=== PATIENT | female | born 1960 | race Caucasian/White ===

== ENCOUNTER → 2023-11-01 17:05 | Outpatient (REF) | payer OTHER, SELFPAY | LOC: RAD 17:05 | PROVIDERS: ATTENDING PHYSICIAN Nurse Practitioner Adult Health | DX: R60.0 Localized edema (principal); M79.661 Pain in right lower leg | CPT/HCPCS: 93971 ==

== ENCOUNTER → 2024-03-27 13:23 | Outpatient (REF) | payer OTHER, SELFPAY | LOC: RCS 13:23 | PROVIDERS: ATTENDING PHYSICIAN Internal Medicine Rheumatology; FAMILY PHYSICIAN Nurse Practitioner Adult Health | DX: R06.09 Other forms of dyspnea (principal); G89.29 Other chronic pain; M05.9 Rheumatoid arthritis with rheumatoid factor, unspecified; M17.11 Unilateral primary osteoarthritis, right knee; M25.571 Pain in right ankle and joints of right foot; M25.572 Pain in left ankle and joints of left foot; M79.671 Pain in right foot; M79.672 Pain in left foot | CPT/HCPCS: 93017; 71046; 73610; 73630; 93306 ==

== ENCOUNTER → 2024-04-17 14:14 | Outpatient (REF) | payer OTHER, SELFPAY | LOC: HWRAD 14:14 | PROVIDERS: ATTENDING PHYSICIAN Nurse Practitioner Adult Health | DX: R93.89 Abnormal findings on diagnostic imaging of other specified body structures (principal) | CPT/HCPCS: 71250 ==

== ENCOUNTER → 2024-07-07 11:40 | Outpatient (REF) | payer OTHER, SELFPAY | LOC: HWWDC 11:40 | PROVIDERS: ATTENDING PHYSICIAN Obstetrics & Gynecology Gynecology; FAMILY PHYSICIAN Nurse Practitioner Adult Health | DX: Z12.31 Encounter for screening mammogram for malignant neoplasm of breast (principal) | CPT/HCPCS: 77063; 77067 ==

== ENCOUNTER 2024-11-10 06:26 | Day surgery (SDC) | payer OTHER, SELFPAY | END 2024-11-10 15:05 | disposition home or self-care (01) | LOC: GI 06:26 | PROVIDERS: ATTENDING PHYSICIAN Internal Medicine; FAMILY PHYSICIAN Nurse Practitioner Adult Health | DX: Z12.11 Encounter for screening for malignant neoplasm of colon (principal); D12.0 Benign neoplasm of cecum; D12.2 Benign neoplasm of ascending colon; K57.30 Diverticulosis of large intestine without perforation or abscess without bleeding; K64.9 Unspecified hemorrhoids | CPT/HCPCS: 45380; 88305 ==

== ENCOUNTER 2025-02-11 20:20 | Inpatient (IN) | payer OTHER, SELFPAY ==
[2025-02-11 17:36] VITALS: BP 109/72
[2025-02-11 17:54] LABS: Hematocrit 39.8 % (37.0-47.0); Hemoglobin 13.1 g/dL (12.0-16.0); Mean Corp Hgb Conc. 32.9 g/dL (33.0-37.0); Mean Corpuscular Volume 89.0 fL (81.0-99.0); Nucleated Red Blood Cells % 0 %; Platelet Count 262 10^3/uL (130-400); Red Cell Dist. Width 14.0 % (11.5-14.5)
[2025-02-11 18:11] LABS: ALT (SGPT) 36 U/L (0-35); AST (SGOT) 52 U/L (14-36); Albumin 3.9 g/dl (3.5-5.0); Alkaline Phosphatase 46 U/L (38-126); Blood Urea Nitrogen 36 mg/dl (7-17); Calcium 10.1 mg/dl (8.4-10.2); Carbon Dioxide 21 mmol/L (22-30); Chloride 109 mmol/L (98-107); Glucose 198 mg/dl (70-99); Potassium 4.3 mmol/L (3.5-5.1); Sodium 137 mmol/L (135-145); Total Protein 6.9 g/dl (6.3-8.2); eGFR 46.21
--- NOTE | 2025-02-11 19:08 | ED.GENMED ---
History of Present Illness
General
Chief Complaint: Skin Problem
Source: patient
Exam Limitations: none
Time Seen by Provider: 02/11/25 18:45
History of Present Illness
History of Present Illness:
64yo right hand dominant female with a history of hypertension, hyperlipidemia, hypothyroidism presenting for evaluation of a cat scratch to her left forearm. Patient was scratched by her indoor cat 1 week ago. She did not have any issues until
yesterday afternoon when she started to notice redness, warmth, and pain to the left forearm. She had chills and a low-grade temperature of 99.6 last night. She went to urgent care today for evaluation and she was sent to the ED due to concern for
red streaking up the arm. Patient reports being up-to-date on tetanus vaccine and cat is indoor only and up-to-date on rabies vaccination.
Phy Exam
General Physical Exam
General Presentation: well appearing and no apparent distress
General Skin: warm and dry
General Habitus: normal
General Mental: alert
ENT Exam
ENT Exam: normocephalic
Pulmonary Exam
Pulmonary Exam: no respiratory distress
Neurological Exam
Neurological Exam: alert
[place] Coma Scale
Eye Opening: Spontaneous
Verbal Response: Oriented
Motor Response: Obeys Commands
GCS Total Score: 15
Skin Exam
Skin Exam: warm/dry and other (L forearm: Scab noted to dorsum of forearm with surrounding erythema and warmth and red streaking proximally consistent with lymphangitis. No fluctuance, drainage, or crepitus.)
Psychiatric Exam
Psychiatric Exam: normal mood/affect
Course
Orders/Labs/Results
Orders:
Orders
02/11/25 Breakfast
Regular
At Your Request: Full Participation
02/11/25 17:46
Complete Blood Count/With Diff Urgent
Comprehensive Metabolic Panel Urgent
Glycohemoglobin (HgbA1c) Urgent
Lactic Acid Urgent
Blood Culture Urgent
SUE Source: Blood/Venous
Specimen Description:
02/11/25 19:10
0.9% Sodium Chloride 1000 ml [Nss] 1,000 ml IV BOLUS
Azithromycin 500 mg/250 ml [Zithromax Infusion] 500 mg in 250 ml IV NOW
CeFAZolin 2 GRAM [Ancef] 2 grams in 10 ml IV NOW
02/11/25 19:37
Blood Culture Urgent
SUE Source: Blood/Venous
Specimen Description:
02/11/25 19:50
Admit/Transfer Patient As Directed
Co-Sign Provider:
Level of Care: Inpatient admission
Assign to:: Medical/Surgical
Physician / Group: Tee
Diagnosis: LUE Cellulitis
Reason for Hospitalization: LUE Cellulitis
Expected length of stay greater than two midnights?: Yes
ELOS- Estimated Length of Stay in days: 2
I certify the patient meets the requirements for IP care: Yes
PRN Pain Medication Management As Directed
May give lesser potent ordered pain med per pt: Yes
preference::
Protocol:: Medication orders for pain may be administered in a
manner that supports deferring to patient preference
when the pt is:
- Requesting an ordered lesser potent pain medication.
Least to most potent pain medications are defined
as: acetaminophen < NSAID < tramadol < opioids
(morphine, oxycodone, hydromorphone).
- Requesting a lesser dose of the same medication IF
ORDERED.
- Requesting a less intrusive route of administration
if both routes are prescribed by the provider (PO <
IV).
02/11/25 19:51
Code Status As Directed
Resuscitation Status: Full Code
02/11/25 21:45
Acetaminophen [Tylenol] 650 mg PO Q4HPRN PRN
02/11/25 21:45
Activity As Directed
Activity Level: Ambulate
I/O [Intake/ Output] As Directed
Frequency: Per unit guidelines
Vital Signs As Directed
Frequency: Per unit guidelines
Oxygen Therapy [O2 Therapy] [RESP] Routine
Titrate/Wean O2 to maintain O2 sat greater than (%): 94
DX Deep Vein Thrombosis Video Routine
02/11/25 22:00
Fenofibrate 145 [Tricor] 145 mg PO HS
Gabapentin [Neurontin] 300 mg PO BID
02/12/25 04:00
CeFAZolin 2 GRAM [Ancef] 2 grams in 10 ml IV Q8H
02/12/25 06:00
Basic Metabolic Panel IN AM
Complete Blood Count/No Diff IN AM
Levothyroxine [Synthroid] 125 mcg PO DAILY @ 0600
02/12/25 08:00
Azithromycin [Zithromax] 250 mg PO DAILY
Celecoxib [Celebrex] 200 mg PO DAILY
Cholecalciferol (Vitamin D3) [VITAMIN D3 (cholecalciferol)] 75 mcg PO DAILY
Dapagliflozin [Farxiga] 10 mg PO DAILY
Enoxaparin Sodium [Lovenox] 40 mg SC Q12
Furosemide [Lasix] 20 mg PO Q48H
Multivitamin [Theragran] 1 tablet PO DAILY
Abnormal Lab Results
02/11/25
17:46
WBC 20.1 H 10^3/uL
(4.8-10.8)
MCHC 32.9 L g/dL
(33.0-37.0)
Abs Immat Gran (auto) 0.1 H 10^3/uL
(0-0.05)
Absolute Neuts (auto) 17.4 H 10^3/uL
(1.4-6.5)
Absolute Monos (auto) 0.7 H 10^3/uL
(0.1-0.6)
Immature Gran % 0.6 H %
(0-0.5)
Neutrophils % 86.8 H %
(42.2-75.2)
Lymphocytes % 8.6 L %
(20.5-51.1)
Chloride 109 H mmol/L
(98-107)
Carbon Dioxide 21 L mmol/L
(22-30)
BUN 36 H mg/dl
(7-17)
Creatinine 1.3 H mg/dL
(0.6-1.0)
Glucose 198 H mg/dl
(70-99)
AST 52 H U/L
(14-36)
ALT 36 H U/L
(0-35)
02/11/25 17:46
02/11/25 17:46
Vital Signs
Initial and Last Documented VS:
Initial Vital Signs
Temp Pulse Resp BP Pulse Ox
98.1 F 95 20 109/72 96
02/11/25 17:36 02/11/25 17:36 02/11/25 17:36 02/11/25 17:36 02/11/25 17:36
Last Documented Vital Signs
Temp Pulse Resp BP Pulse Ox
98.1 F 92 18 156/77 98
02/11/25 21:25 02/11/25 21:25 02/11/25 21:25 02/11/25 21:25 02/11/25 21:25
MDM/Problems Addressed
Differential Diagnosis Includes:
64yoF here with L forearm redness and chills x 24 hours. Scratched by cat 1 week ago. Sent in by urgent care. VSS. There is evidence of cellulitis with lymphangitis on exam. No signs of abscess or NSTI.
Labs obtained in triage and white count is significantly elevated at 20.1. Lactate WNL. Blood culture sent, second set added. IV Ancef and azithromycin ordered to cover for cat scratch disease. She was admitted for further management.
*Pulse Oximetry
SaO2: 96
Oxygen Mode of Delivery: Room air
Patient hypoxic: no (96%)
*Critical Care Note
Total Time (30-74mins, 75-104mins- exclusive of procedures): Not Applicable
ED Attending Note
-
Portions of this chart may have been created with voice recognition software.� Occasional wrong word or��sound alike� substitutions may have occurred due to the inherent limitations of voice recognition software.
Discharge Plan
Departure
Patient Disposition: Admit
Date of Disposition: 02/11/25
Time of Disposition: 19:22
Presentation/result/management discussed w/ accepting MD/DO: Hospitalist
Discharge Problem:
Cat scratch of left forearm with infection
Interventions
Interventions:
*Risk Screen - Suicide Last Done: 02/11/25 19:49
*General Assessment Last Done: 02/11/25 17:36
*Neglect/Abuse Screening Last Done: 02/11/25 19:49
*ED- Fall Risk Assessment Last Done: 02/11/25 19:49
*ED COVID-19 Vaccine History Last Done: 02/11/25 19:49
*Nursing Disposition Last Done: 02/11/25 21:01
ED-Skin Assessment Last Done: 02/11/25 19:49
Discharge Date and Time
Discharge Date/Time: 02/11/25 21:01
[2025-02-11 19:16] VITALS: BP 98/54
[2025-02-11 19:18] VITALS: BP 118/59
[2025-02-11] MEDS: NSS 1000 IV (19:20)
[2025-02-11] MEDS: ANCEF 10 IV (19:26)
[2025-02-11] MEDS: ZITHROMAX INFUSION 250 IV (19:27)
[2025-02-11 19:48] VITALS: BMI 45.6
--- NOTE | 2025-02-11 19:55 | HPS.HSE ---
Family Physician
-
Family Physician: CHASE Tomlinson
Chief Complaint
-
L arm pain / redness
History of Present Illness
Patient is a 64y F with PMH significant for RA on Simponi, hypertension and hypothyroidism who presents to ED complaining of LUE pain and redness. Patient states that her indoor cat scratched her about one week ago on the L forearm just proximal
to the wrist. She had no issues at all for the past week. She states that she may have scratched the scab yesterday. She noted some bleeding as her dog was licking her arm - which brought the newly open scratch / wound to her attention.
Overnight last night she noted shaking chills, sweats and fever. Today she appreciated pain and redness in the L arm which worsened throughout the day. She was seen at Urgent Care and referred to the ED for further evaluation.
Patient states that her most recent dose of Simponi was end of January.
Medical History
Past Medical History
Past Medical History: Reports Other
Additional Past Medical History:
Rheumatoid Arthritis
Hypothyroidism
Hypertension
Obesity
Chronic HFpEF
Past Surgical History: Reports Other
Additional Past Surgical History:
Bladder Sling
L TKA
Social History
Tobacco: Non-smoker
Alcohol: None
Drug: None
Family History
Family History: Not pertinent
Allergies / Home Medications
Allergies reflects when Allergies were last updated in [facility].
Home Medications with original date entered in [facility]
Allergy/Medication List:
Allergies
Allergy/AdvReac Type Severity Reaction Status Date / Time
Penicillins Allergy Swelling Verified 02/11/25 17:36
acetaminophen (From Percocet) AdvReac Pharmacy Verified 02/11/25 17:36
to Review
meperidine (From Demerol) AdvReac Nausea / Verified 02/11/25 17:36
Vomiting
oxycodone (From Percocet) AdvReac dizziness Verified 02/11/25 17:36
Home Medications
Vitamin D3: 3,000 units PO DAILY 06/24/20
fenofibrate 160 mg tablet 160 mg PO HS 06/24/20
levothyroxine 125 mcg tablet 125 mcg PO DAILY 06/24/20
celecoxib 200 mg capsule 200 mg PO DAILY ##0 07/15/20
dapagliflozin propanediol 10 mg tablet (Farxiga) 10 mg PO DAILY 02/11/25
furosemide 20 mg tablet 20 mg PO Q OTHER DAY 02/11/25
gabapentin 300 mg capsule 300 mg PO BID 02/11/25
multivitamin 1 tab PO DAILY 02/11/25
Review of Systems
-
History Source: Patient
A 12 point ROS was completed and negative except as noted: Yes
Constitutional: Reports Fever, Fatigue and Chills
EENT: Denies Sore Throat
Respiratory: Denies Cough or Trouble Breathing
Cardiac: Denies Chest Pain or Palpitations
Abdomen/GI: Denies Abdominal Pain, Nausea, Vomiting or Diarrhea
: Denies Dysuria or Flank Pain
Musculoskeletal: Reports Muscle Pain; Denies Joint Pain
Skin: Reports Other (Redness / pain / scratch L forearm.)
Hematologic/Lymphatic: Reports Other (No appreciated lymphadenopathy)
Physical Exam
Vital Signs
Vital Signs
Temp Pulse Resp BP Pulse Ox
98.1 F 82 22 118/59 98
02/11/25 17:36 02/11/25 19:45 02/11/25 19:45 02/11/25 19:18 02/11/25 19:30
Physical Exam
General: Other (64y F in no acute distress.)
HEENT: Moist mucous membranes and PERRLA
Respiratory: Clear; No Wheezes, Rales or Rhonchi
Cardiac: S1/S2 and Regular Rhythm; No Murmur
GI: Soft, Non Tender, Non Distended and Normal Bowel Sounds
Skin: Other (Scratch on dorsal aspect of the L forearm just proximal to the wrist. No bleeding / discharge. Surrounding erythema and increaed warmth including lymphangitis extending past the elbow.)
Neuro: AO x 3
Hematologic/Lymphatic: Other (No axillary or other appreciated adenopathy.)
Laboratory Results
-
02/11/25 17:46
02/11/25 17:46
Laboratory Results
Lactic Acid 1.6 mmol/L (0.7-2.0) 02/11/25 17:46
Total Bilirubin 1.0 mg/dl (0.2-1.3) 02/11/25 17:46
AST 52 U/L (14-36) H 02/11/25 17:46
ALT 36 U/L (0-35) H 02/11/25 17:46
Alkaline Phosphatase 46 U/L (38-126) 02/11/25 17:46
Impression/Plan
-
A/P: Patient is a 64y F with PMH significant for hypertension, hypothyroidism and RA on Simponi who presents to ED complaining of LUE pain and redness.
LUE Cellulitis with Lymphangitis
Immunocompromised Host
- Admit for further evaluation and treatment.
- Given timing, exam, etc - suspect cellulitis secondary to skin break / wound. Doubt CSD.
- Continue Ancef and follow for improvement in lymphangitis / pain / etc.
- Follow temperature curve and monitor for new / worsening symptoms.
- Complete azithromycin course (5 days total) and monitor for development of any adenopathy, etc.
- Cat is an indoor only animal and up to date with vaccinations.
- Dog (who licked the wound prior to onset of redness) also UTD with vaccinations.
RA
- Stable. No acute joint pains / etc.
- Last Simponi dose was end of January.
- Next due end of March.
Benign Hypertension
Chronic HFpEF
- Stable. Continue Farxiga and Lasix.
- Follow I/Os, daily weights, etc.
Suspected CKD III
- Stable. No recent prior values.
- Follow SCr over the next 48-72 hours to determine true baseline.
Hypothyroidism
- Continue current T4 replacement.
Obesity due to excess calories
- Affects all aspects of care.
- Encourage healthy diet and increased activity with goal of weight loss.
- Check A1C given hyperglycemia on initial labs.
DVT Prophylaxis: Lovenox
Code Status: Full
[2025-02-11 20:00] VITALS: BP 99/66
[2025-02-11 21:25] VITALS: BP 156/77; BMI 44.6
--- NOTE | 2025-02-11 21:30 | PTCARENOTE ---
Rec'd on 4W. Able to ambulate from stretcher to room w/o difficulty. Lt forearm red & warm to touch. Scabbed scratch noted; no drainage.
[2025-02-11] MEDS: TYLENOL 650 MG PO (21:59)
[2025-02-11] MEDS: NEURONTIN 300 MG PO (21:59)
[2025-02-11] MEDS: TRICOR 145 MG PO (22:40)
[2025-02-12 02:30] VITALS: BP 107/64
[2025-02-12] MEDS: ULTRAM 50 MG PO (03:35)
[2025-02-12] MEDS: ANCEF 10 IV ×3 (03:37→20:57)
[2025-02-12] MEDS: FLUSH (NSS) 2 FLUSH IV (03:38)
[2025-02-12 05:39] VITALS: BMI 44.0
--- NOTE | 2025-02-12 06:00 | PTCARENOTE ---
Redness Lt forearm remains as on adm to floor - no further extension.
[2025-02-12] MEDS: SYNTHROID 125 MCG PO (06:43)
[2025-02-12 07:30] VITALS: BP 104/64
[2025-02-12] MEDS: CELEBREX 200 MG PO (08:12)
[2025-02-12] MEDS: ZITHROMAX 250 MG PO (08:12)
[2025-02-12] MEDS: FARXIGA 10 MG PO (08:12)
[2025-02-12] MEDS: VITAMIN D3 (cholecalciferol) 75 MCG PO (08:13)
[2025-02-12] MEDS: NEURONTIN 300 MG PO ×2 (08:13→20:58)
[2025-02-12] MEDS: THERAGRAN 1 TABLET PO (08:14)
[2025-02-12] MEDS: LOVENOX 40 MG SC ×2 (08:15→20:58)
[2025-02-12 09:25] LABS: Hematocrit 40.9 % (37.0-47.0); Hemoglobin 13.4 g/dL (12.0-16.0); Mean Corp Hgb Conc. 32.8 g/dL (33.0-37.0); Mean Corpuscular Volume 90.5 fL (81.0-99.0); Platelet Count 267 10^3/uL (130-400); Red Cell Dist. Width 14.0 % (11.5-14.5)
[2025-02-12 10:23] LABS: Blood Urea Nitrogen 26 mg/dl (7-17); Calcium 10.0 mg/dl (8.4-10.2); Carbon Dioxide 19 mmol/L (22-30); Chloride 109 mmol/L (98-107); Estimated Creatinine Clearance 68 ml/min; Glucose 115 mg/dl (70-99); Potassium 4.1 mmol/L (3.5-5.1); Sodium 139 mmol/L (135-145); eGFR 56.46
[2025-02-12 11:00] LABS: Glycohemoglobin (HgbA1c) 6.0 % (4.0-5.6)
--- NOTE | 2025-02-12 12:09 | CM ---
Met with pt at bedside. IA completed.Lives with son in 2 story home with 3 step at entrance to home. BR on 1st floor.Has walker and cane at home; neither are in use. Has grab bars in the BR. History of HH post knee surgery.
PCP: Ismael Alves
Rx: 30 day fills [facility] in [place]
Rx: 90 day fill with [employer] order company. Name unknown
[2025-02-12] MEDS: TYLENOL 650 MG PO (12:51)
--- NOTE | 2025-02-12 13:31 | W.PN.HOSP.TC ---
Today's Communication/Plan
-
CW Ancef
Follow WBC and Cr
Assessment / Plan
Assessment / Plan
A/P: Patient is a 64y F with PMH significant for hypertension, hypothyroidism and RA on Simponi who presents to ED complaining of LUE pain and redness.
LUE Cellulitis with Lymphangitis
Immunocompromised Host
- Given timing, exam, etc - suspect cellulitis secondary to skin break / wound. Doubt CSD.
- Continue Ancef ;WBC improvement noted but patient with no subjective improvement in pain
- Follow temperature curve and monitor for new / worsening symptoms.
- Complete azithromycin course (5 days total) and monitor for development of any adenopathy, etc.
- Cat is an indoor only animal and up to date with vaccinations.
- Dog (who licked the wound prior to onset of redness) also UTD with vaccinations.
RA
- Stable. No acute joint pains / etc.
- Last Simponi dose was end of January.
- Next due end of March.
Benign Hypertension
Chronic HFpEF
- Stable. Continue Farxiga and Lasix.
- Follow I/Os, daily weights, etc.
Suspected CKD III
- Stable. No recent prior values.
- Follow SCr over the next 48-72 hours to determine true baseline.
Hypothyroidism
- Continue current T4 replacement.
Obesity due to excess calories
- Affects all aspects of care.
- Encourage healthy diet and increased activity with goal of weight loss.
- Check A1C given hyperglycemia on initial labs.
DVT Prophylaxis: Lovenox
Code Status: Full
Anticipated Discharge: 24 - 48 hours
Subjective/Interval History
-
Date of Service: February 12, 2025
The left arm still looks the same and feels the same as yesterday. Not much improvement.
No fevers this morning.
No nausea vomiting.
No diarrhea.
Denies any new symptoms.
Patient has chronic mild abnormal LFTs apparently and the physicians are keeping an eye on it.
Objective Data
-
Labs:
Laboratory Results
02/12/25
08:46
WBC 18.6 H
Hgb 13.4
Hct 40.9
Plt Count 267
Sodium 139
Potassium 4.1
Chloride 109 H
Carbon Dioxide 19 L
BUN 26 H
Creatinine 1.1 H
Glucose 115 H
Calcium 10.0
Vital Signs:
Vital Signs
Temp Pulse Resp BP Pulse Ox
98.3 F 82 18 104/64 94
02/12/25 07:30 02/12/25 07:30 02/12/25 07:30 02/12/25 07:30 02/12/25 07:30
I&O
02/11/25 02/12/25 02/13/25
06:59 06:59 06:59
Intake Total 220 / 220
Balance 220 / 220
Physical Exam
-
General: Comfortable
Respiratory: Non Labored Respirations; Negative Accessory Resp Muscle Use
Cardiac: Regular Rhythm and S1/S2
GI: Soft
Musculoskeletal: Edema, Left Upper Extrem (swelling of the dorsal forearm and clear border to the cellulitis ;no axillary LN )
Neuro: AO x 3
Psych: Calm
Data Reviewed
-
Labs: Labs Reviewed by me
[2025-02-12 15:36] VITALS: BP 124/64
[2025-02-12] MEDS: TRICOR 145 MG PO (20:58)
[2025-02-12 23:00] VITALS: BP 105/73
[2025-02-13] MEDS: ANCEF 10 IV ×2 (03:16→13:24)
[2025-02-13] MEDS: SYNTHROID 125 MCG PO (05:33)
[2025-02-13 07:30] VITALS: BP 110/69
[2025-02-13 08:38] LABS: Hematocrit 38.8 % (37.0-47.0); Hemoglobin 12.4 g/dL (12.0-16.0); Mean Corp Hgb Conc. 32.0 g/dL (33.0-37.0); Mean Corpuscular Volume 91.9 fL (81.0-99.0); Platelet Count 271 10^3/uL (130-400); Red Cell Dist. Width 14.1 % (11.5-14.5)
[2025-02-13] MEDS: LOVENOX 40 MG SC (09:12)
[2025-02-13] MEDS: NEURONTIN 300 MG PO (09:13)
[2025-02-13] MEDS: CELEBREX 200 MG PO (09:13)
[2025-02-13] MEDS: FARXIGA 10 MG PO (09:13)
[2025-02-13] MEDS: VITAMIN D3 (cholecalciferol) 75 MCG PO (09:13)
[2025-02-13] MEDS: LASIX 20 MG PO (09:14)
[2025-02-13] MEDS: THERAGRAN 1 TABLET PO (09:14)
[2025-02-13 09:17] LABS: Blood Urea Nitrogen 24 mg/dl (7-17); Calcium 9.7 mg/dl (8.4-10.2); Carbon Dioxide 21 mmol/L (22-30); Chloride 110 mmol/L (98-107); Estimated Creatinine Clearance 83 ml/min; Glucose 111 mg/dl (70-99); Potassium 4.4 mmol/L (3.5-5.1); Sodium 139 mmol/L (135-145); eGFR > 60.00
[2025-02-13] MEDS: ZITHROMAX 250 MG PO (09:17)
[2025-02-13] MEDS: TYLENOL 650 MG PO ×2 (09:21→15:49)
--- NOTE | 2025-02-13 11:58 | CM ---
Addendum entered by Kylah Shanks 02/13/25 14:25:
Per physician note; pt to be discharged home later today
Original Note:
Reviewed Chart. Met with pt bedside. Possible d/c today. Pt was told the IV ABXs will be changed to oral at discharge
Plan: home no needs
--- NOTE | 2025-02-13 13:18 | W.PN.HOSP.TC ---
Addendum entered and electronically signed by Gabe Garcia MD 02/14/25 13:11:
sepsis-poa
Original Note:
Today's Communication/Plan
-
dc home
po abx
Assessment / Plan
Assessment / Plan
A/P: Patient is a 64y F with PMH significant for hypertension, hypothyroidism and RA on Simponi who presents to ED complaining of LUE pain and redness.
LUE Cellulitis with Lymphangitis
Immunocompromised Host
- Given timing, exam, etc - suspect cellulitis secondary to skin break / wound. Doubt CSD.
- Continue Ancef ; leukocytosis resolved. Per patient significant improvement in erythema and swelling since admission. It was discussed with patient to return to ER if there is an increase in erythema, swelling and or with new onset of pain in
LUE.
- Follow temperature curve and monitor for new / worsening symptoms.
- Complete azithromycin course (5 days total) and monitor for development of any adenopathy, etc.
- Cat is an indoor only animal and up to date with vaccinations.
- Dog (who licked the wound prior to onset of redness) also UTD with vaccinations.
RA
- Stable. No acute joint pains / etc.
- Last Simponi dose was end of January.
- Next due end of March.
Benign Hypertension
Chronic HFpEF
- Stable. Continue Farxiga and Lasix.
- Follow I/Os, daily weights, etc.
Suspected CKD III
- Stable. No recent prior values.
- Follow SCr over the next 48-72 hours to determine true baseline.
Hypothyroidism
- Continue current T4 replacement.
Morbid Obesity due to excess calories
- Affects all aspects of care.
DVT Prophylaxis: Lovenox
Code Status: Full
Dispo Home later today.
More than 30 minutes spent in discharge including
Final examination of the patient
Summarizing hospital stay
Instructions for continuing care to all relevant caregivers
Preparation of discharge records, prescriptions, and referral forms
Total time spent (in minutes): 52
Anticipated Discharge: Today
Subjective/Interval History
-
Date of Service: February 13, 2025
pt states improvement in left forearm swelling and pain
able to flex/extend elbow and wrist-left
remains afebrile
states she is R handed
Objective Data
-
Labs:
Laboratory Results
02/13/25
07:40
WBC 10.5
Hgb 12.4
Hct 38.8
Plt Count 271
Sodium 139
Potassium 4.4
Chloride 110 H
Carbon Dioxide 21 L
BUN 24 H
Creatinine 0.9
Glucose 111 H
Calcium 9.7
Vital Signs:
Vital Signs
Temp Pulse Resp BP Pulse Ox
98.2 F 67 16 110/69 96
02/13/25 07:30 02/13/25 07:30 02/13/25 07:30 02/13/25 07:30 02/13/25 07:30
I&O
02/12/25 02/13/25 02/14/25
06:59 06:59 06:59
Intake Total 220 / 220 740 / 740
Balance 220 / 220 740 / 740
Physical Exam
-
General: Well Developed, Well Nourished, No Apparent Distress, Comfortable and Morbidly Obese (bmi 44)
HEENT: Normocephalic, Atraumatic and Moist Mucous Membranes
Respiratory: Non Labored Respirations; Negative Accessory Resp Muscle Use
Cardiac: Regular Rhythm and S1/S2
GI: Soft
Musculoskeletal: Edema, Left Upper Extrem (swelling of the dorsal forearm-improved per patient . Able to flex and extend left elbow and wrist without any difficulty. Positive for radial and ulnar pulse.)
Neuro: Awake, Oriented and AO x 3
Psych: Calm
--- NOTE | 2025-02-13 13:38 | W.DCSUMMARY ---
Discharge Summary
Discharge Data
Date of Admission: 02/11/25
Date of Discharge: 02/13/25
-
Pending Results: No
Hospital Course
Patient is a 64y F with PMH significant for hypertension, hypothyroidism, chronic HFpEF, suspected CKD stage III and RA on Simponi who presents to ED complaining of LUE pain and redness. Patient was on IV antibiotics. Patient temperature and
WBC curve was trended. Patient remained afebrile throughout hospitalization. Patient was on azithromycin and Ancef. Over the course of hospitalization patient with improvement of erythema and swelling. Patient states she is right-handed.
Patient was able to flex and extend left elbow and left wrist without any difficulty. Patient stated significant improvement of erythema and swelling of the left upper extremity/forearm. Plan will be to transition patient to p.o. antibiotics upon
discharge to complete additional 7-day course. It was discussed with patient to return to ER if there is an increase in erythema, swelling and or with new onset of pain in LUE. Patient verbalized understanding.
Discharge Plan
-
Patient Disposition: Home (Routine Discharge)
Discharge Diagnosis/Procedures: Left upper extremity cellulitis with lymphangitis
Acute kidney injury
Condition: Fair
Diet: Low Cholesterol
Activity: As tolerated
Driving Restrictions: As prior to admission
Blood Work: CMP in 7 to 10 days via primary doctor to assess transaminitis
Referrals:
Mere Mejía CRNP [Family Provider, Internal Medicine] - in less than 1 week
Prescriptions:
New
cephalexin 500 mg capsule
500 mg PO Q6H 7 Days Qty: 28 0RF
azithromycin 250 mg tablet
250 mg PO ONCE Qty: 4 0RF
Continued
levothyroxine 125 MCG tablet
125 mcg PO DAILY
fenofibrate 160 MG tablet
160 mg PO HS
Vitamin D3:
3,000 units PO DAILY
celecoxib 200 MG capsule
200 mg PO DAILY Qty: 0 0RF
Rx Instructions:
Home med.
Take with food.
Do not take within 2 hours of Aspirin.
multivitamin Tablet
1 tab PO DAILY
gabapentin 300 mg Capsule
300 mg PO BID
furosemide 20 mg Tablet
20 mg PO Q OTHER DAY
dapagliflozin propanediol [Farxiga] 10 mg Tablet
10 mg PO DAILY
Discharge Orders:
Discharge Patient (As Directed); Ordered 02/13/25
Ordered By: Gabe Garcia
Discharge Date and Time
Print Language: [place]
[2025-02-13 15:20] VITALS: BP 120/56
--- NOTE | 2025-02-14 11:48 | PN.CDI ---
CDI
- -
CDI:
Physician Documentation Request
Admit Date: 02/11/25 20:20
Dear Doctor Jose,
Patient admitted with cellulitis.
02/13 Hospitalist PN: 'LUE Cellulitis with Lymphangitis, Immunocompromised Host...Continue Ancef ; leukocytosis resolved'
Laboratory Tests
02/11/25 02/12/25
17:46 08:46
WBC 20.1 H 18.6 H
02/11/25
19:15 02/11/25
20:15 02/11/25
20:45
Resp Rate 21 24 24
Please clarify which of the following most accurately describes the status of the patient's infection:
Sepsis, POA
- Systemic manifestations of infection, with 2 or more SIRS criteria which include:
- Fever >100.9 degrees F or hypothermia < 96.8 degrees F
- Leukocytosis - WBC > 12,000 or leukopenia - WBC < 4,000 or > 10% bands
- Tachycardia > 90 beats per minute
- Tachypnea - RR > 20 breaths per minute or PaCO2 , 32mmHg
Source: Merck Manual 2012
Localized Infection Only, Without Systemic Illness
- indicate the site/source, such as UTI, pneumonia etc.
Other
Unable to Determine
Use of terms such as suspected, likely, concern for, or probable (associated with a specific diagnosis that is being evaluated, monitored, or treated as if it exists) are acceptable and can be coded in the inpatient setting, when documented at the
time of discharge.
Thank you,
Judi Lopez RN, BSN
CDI Specialist
Available via [employer] text
Please use your independent medical judgment in providing your response.
== END 2025-02-13 16:07 | disposition home or self-care (01) | DRG 872 ==
LOC: 4 WEST ACU 20:20
PROVIDERS: Internal Medicine; ADMITTING PHYSICIAN Hospitalist; ATTENDING PHYSICIAN Hospitalist; EMERGENCY PHYSICIAN Emergency Medicine; FAMILY PHYSICIAN Nurse Practitioner Adult Health
DX: A41.9 Sepsis, unspecified organism (principal); L03.114 Cellulitis of left upper limb; I50.32 Chronic diastolic (congestive) heart failure; Z68.41 Body mass index [BMI] 40.0-44.9, adult; D84.9 Immunodeficiency, unspecified; N17.9 Acute kidney failure, unspecified; E03.9 Hypothyroidism, unspecified; I11.0 Hypertensive heart disease with heart failure; E66.01 Morbid (severe) obesity due to excess calories; M06.9 Rheumatoid arthritis, unspecified; Z96.652 Presence of left artificial knee joint; Z88.0 Allergy status to penicillin; Z79.890 Hormone replacement therapy; Z79.84 Long term (current) use of oral hypoglycemic drugs; E78.5 Hyperlipidemia, unspecified; W55.03XA Scratched by cat, initial encounter
CPT/HCPCS: 80048; 80053; 83036; 83605; 85025; 85027; 87040; 87070; 93005; 96365; 96375; 99285

== ENCOUNTER → 2025-04-09 12:06 | Outpatient (REF) | payer OTHER, SELFPAY | LOC: HWRAD 12:06 | PROVIDERS: ATTENDING PHYSICIAN Nurse Practitioner Adult Health | DX: M25.572 Pain in left ankle and joints of left foot (principal) | CPT/HCPCS: 73610 ==

== ENCOUNTER → 2025-04-18 11:25 | Outpatient (REF) | payer OTHER, SELFPAY | LOC: HWRAD 11:25 | PROVIDERS: ATTENDING PHYSICIAN Nurse Practitioner Gerontology; FAMILY PHYSICIAN Nurse Practitioner Adult Health | DX: R06.02 Shortness of breath (principal) | CPT/HCPCS: 71046 ==

== ENCOUNTER → 2025-04-20 09:47 | Outpatient (REF) | payer OTHER, SELFPAY | LOC: RAD 09:47 | PROVIDERS: ATTENDING PHYSICIAN Student in an Organized Health Care Education/Training Program; FAMILY PHYSICIAN Nurse Practitioner Adult Health; REFERRING PHYSICIAN Nurse Practitioner Gerontology | DX: R06.02 Shortness of breath (principal); I50.32 Chronic diastolic (congestive) heart failure | CPT/HCPCS: 71275; Q9967 ==

== ENCOUNTER 2025-04-20 12:54 | Inpatient (IN) | payer OTHER, SELFPAY ==
[2025-04-20] VITALS (9 sets, daily range): BP systolic 91–133; BP diastolic 58–79; BMI 43.5; BMI 42.6
--- NOTE | 2025-04-20 10:48 | ED.GENMED ---
History of Present Illness
General
Chief Complaint: Breathing Problem
Source: patient
Exam Limitations: none
Time Seen by Provider: 04/20/25 10:38
History of Present Illness
History of Present Illness:
See MDM
Past History
Past History
ED Past Medical History: CHF and HTN
ED Past Surgical History: None
Social History
Tobacco: Non-smoker
Alcohol: None
Phy Exam
Physical Exam
Physical Exam:
See MDM
Scores
Heart Failure Risk
Heart Failure Risk Score: Not Applicable
Course
Orders/Labs/Results
Orders:
Orders
04/20/25 10:30
Electrocardiogram (*1) Urgent
Reason for Study: Shortness of Breath
EKG- Treatment ONCE
04/20/25 10:46
Heparin 9,500 units IV NOW STA
04/20/25 10:[address] Non Medication Order As Directed
Physician Order: PTT 6 hours after initial start of Heparin infusion
04/20/25 10:52
Complete Blood Count/With Diff Urgent
Comprehensive Metabolic Panel Urgent
NT-proBNP Urgent
PTT Urgent
Prothrombin Time Urgent
Troponin I Urgent
04/20/25 11:00
Heparin 56370 Units/250 ml 25,000 units in 250 ml IV PER PROTOCOL
Weight to be used for heparin protocol in kilograms (kg):: 118.614
Protocol:: DVT/PE
PTT Goal Range to be used:: PTT 73 to 111 seconds
Order type:: Initial
INITIAL Infusion Dose (UNITS/KG/hr) & then follow protocol:: 18 units/kg/hr
Infusion Dose in UNITS/hr & then follow protocol (UNITS/hr):: 2,000
INFUSION RATE in mL/hr & then follow protocol (mL/hr):: 20
For DVT/PE algorithm, re-bolus for low PTT?: Yes
PTT less than or equal to 64 seconds:: Re-bolus 80 units/kg (max 10,000units). Increase by 500 units/hr
(+ 5mL/hr)
PTT 64.1 to 72.9 seconds:: Re-bolus 40 units/kg (max 5,000 units). Increase by 200 units/hr
(+ 2mL/hr)
PTT 73 to 111 seconds:: Target Range. No change in rate.
PTT 111.1 to 130.9 seconds:: Decrease rate by 200 units/hr (- 2 mL/hr)
PTT 131 to 199.9 seconds:: HOLD for 1 hr. Then decrease by 400 units/hr (- 4mL/hr)
PTT greater than or equal to 200 seconds:: HOLD for 2 hrs & Notify Provider. Then decrease by 500 units/hr
(- 5mL/hr)
Lab follow-up:: Each change, PTT q6h until 2 consecutive are therapeutic. Then
PTT daily.
04/20/25 11:28
Heparin 9,440 units IV PRN PRN
04/20/25 11:29
Heparin 4,700 units IV PRN PRN
04/20/25 11:55
Consult Pulmonary [PULMONARY CONSULT] Urgent
Consulting Provider: Sai Best
Was physician already notified: Yes
Abnormal Lab Results
04/20/25
10:52
RBC 5.42 H 10^6/uL
(4.20-5.40)
Hct 48.4 H %
(37.0-47.0)
MCHC 32.6 L g/dL
(33.0-37.0)
RDW 15.2 H %
(11.5-14.5)
BUN 29 H mg/dl
(7-17)
Creatinine 1.2 H mg/dL
(0.6-1.0)
Glucose 100 H mg/dl
(70-99)
Troponin I 0.168 H* ng/ml
04/20/25 10:52
04/20/25 10:52
Vital Signs
Initial and Last Documented VS:
Initial Vital Signs
Temp Pulse Resp BP Pulse Ox
97.6 F 84 24 129/79 88
04/20/25 10:31 04/20/25 10:31 04/20/25 10:31 04/20/25 10:31 04/20/25 10:31
Last Documented Vital Signs
Temp Pulse Resp BP Pulse Ox
97.6 F 84 24 129/79 88
04/20/25 10:31 04/20/25 10:31 04/20/25 10:31 04/20/25 10:31 04/20/25 10:52
MDM/Problems Addressed
Differential Diagnosis Includes:
Note:
CHIEF COMPLAINT(S)
Shortness of breath.
HISTORY OF PRESENT ILLNESS
The patient is a 64-year-old female presenting with shortness of breath persisting for about a week. She reports experiencing difficulty catching her breath when walking but feels better once seated. The symptoms worsened this morning, with notable
shortness of breath even after minimal activity such as walking across a parking lot. The patient described feeling woozy and having difficulty catching her breath upon reaching her car. She denies any history of clots. She has not had clots in the
lungs or elsewhere before and reports no recent travel. She recalls having left arm cellulitis in February. Currently, she experiences no leg pain or swelling and mentions being on furosemide (Lasix) which increases urination. She describes a
sensation of heaviness across the shoulders without associated pain. She reports no bleeding issues. Outpatient CT shows large clot burden in her lungs. She was sent to the emergency department immediately
PHYSICAL EXAM
General: Alert, no acute distress.
Skin: Warm, dry.
Head: Normocephalic, atraumatic
Neck: Appears supple, trachea midline.
Eyes, Ears, Nose, Mouth, and Throat: Moist mucous membranes
Cardiovascular: No signs of cyanosis
Respiratory: Respirations are non-labored. Tachypnea noted but lungs clear
Abdomen: Non-distended
Musculoskeletal: No tenderness to deep venous palpation of her legs but nondependent edema noted in both legs
Neurological: No focal neurological deficit observed.
Psychiatric: Cooperative, appropriate mood and affect.
PLAN
- Initiate anticoagulation with heparin.
- Administer oxygen therapy.
- Admit for overnight observation.
DIFFERENTIAL DIAGNOSIS
The Differential Diagnosis includes, in no particular order and is not limited to:
- Pulmonary embolism
- Congestive heart failure
- Pneumonia
- Chronic obstructive pulmonary disease (COPD) exacerbation
- Asthma exacerbation
- Myocardial infarction
- Pneumothorax
- Pleural effusion
- Lung cancer
- Interstitial lung disease
SUMMARY OF ENCOUNTER
The patient was seen in the emergency department for acute shortness of breath worsening over the past week, reaching its peak this morning. An assessment revealed pulmonary emboli, justifying the initiation of oxygen therapy and anticoagulation
with heparin to prevent clot enlargement. The patient is to be admitted for close monitoring and further management.
DISPOSITION
Admit for overnight observation.
EMERGENCY TREATMENTS ADMINISTERED
Initiated heparin therapy.
Administered supplemental oxygen.
MEDICAL DECISION MAKING
-Complexity of Problems Addressed: Chronic conditions affecting care [pulmonary embolism, history of cellulitis, recent symptoms worsening over a week]
-Data:
Category 1
The presence of clots in the lungs noted, leading to the decision to initiate heparin and oxygen therapy.
-Risk:
The patient is at risk for complications from pulmonary embolism.
Prescription medication was prescribed: Heparin for anticoagulation to prevent clot enlargement.
DIAGNOSIS
Pulmonary Embolism (I26.99)
My independent EKG interpretation is:
- Rhythm: Sinus rhythm
- Heart Rate: 84 beats per minute
- Blanca: Normal
- Intervals: Within normal limits
- ST Segment: No ST elevation
04/20/25 - 11:57
Patient is currently stable on four liters of oxygen via nasal cannula for hypoxia and reports feeling significantly better. After consulting with Pulmonary and Interventional Radiology, it was decided to continue with heparin therapy and not to
proceed with thrombolysis as Pulmonary recommends this approach given the patients current status.
SUMMARY OF ENCOUNTER
The patient presented to the emergency department after multiple pulmonary embolisms were identified via a CT chest scan in the outpatient setting. Given her current condition, she was evaluated for intervention, but pulmonary specialists determined
she is not a candidate for a thrombectomy or thrombolysis at this time. To manage her condition, she was initiated on heparin therapy.
DISPOSITION
Admit for further workup and evaluation.
ASSESSMENT
The patient is experiencing pulmonary embolism, confirmed by imaging. Due to this, she has been placed on anticoagulation therapy with heparin.
EMERGENCY TREATMENTS ADMINISTERED
Initiated heparin therapy.
MANAGEMENT OF THE PATIENTS CARE WAS DISCUSSED WITH
Pulmonary specialists were consulted, and input was received, confirming the decision against thrombectomy and thrombolysis.
PLAN
Continue heparin therapy and admit for further observation and evaluation.
MEDICATION RECONCILIATION
Initiated heparin therapy.
MEDICAL DECISION MAKING
-Complexity of Problems Addressed: Chronic conditions affecting care [pulmonary embolism].
-Data:
Category 3: Discussion of management with pulmonary specialists confirming the treatment plan without thrombectomy or thrombolysis due to current status.
DIAGNOSIS
Pulmonary Embolism (I26.99)
*Pulse Oximetry
SaO2: 88
Oxygen Mode of Delivery: Room air
Patient hypoxic: yes
*Critical Care Note
Total Time (30-74mins, 75-104mins- exclusive of procedures): 35 min
comment:
The high probability of a clinically significant, sudden or life threatening deterioration of the cardiopulmonary system(s) required my full and direct attention, intervention and personal management. The aggregate critical care time was 35 minutes.
This time is in addition to time spent performing reported procedures but includes the following:
[x] Data Review and interpretation
[x] Patient assessment and monitoring of vital signs
[x] Documentation
[x] Medication orders and management
ED Attending Note
-
Portions of this chart may have been created with voice recognition software.� Occasional wrong word or��sound alike� substitutions may have occurred due to the inherent limitations of voice recognition software.
Discharge Plan
Departure
Patient Disposition: Admit
Date of Disposition: 04/20/25
Time of Disposition: 11:58
Admit to: Telemetry
Presentation/result/management discussed w/ accepting MD/DO: Hospitalist
Discharge Problem:
Multiple pulmonary emboli, Hypoxia
Prescriptions:
No Action
levothyroxine 125 MCG tablet
125 mcg PO DAILY
fenofibrate 160 MG tablet
160 mg PO HS
Vitamin D3:
3,000 units PO DAILY
celecoxib 200 MG capsule
200 mg PO DAILY Qty: 0 0RF
Rx Instructions:
Home med.
Take with food.
Do not take within 2 hours of Aspirin.
multivitamin Tablet
1 tab PO DAILY
gabapentin 300 mg Capsule
300 mg PO BID
furosemide 20 mg Tablet
20 mg PO Q OTHER DAY
dapagliflozin propanediol [Farxiga] 10 mg Tablet
10 mg PO DAILY
cephalexin 500 mg capsule
500 mg PO Q6H 7 Days Qty: 28 0RF
azithromycin 250 mg tablet
250 mg PO ONCE Qty: 4 0RF
Referrals:
Mere Mejía CRNP [Family Provider, Internal Medicine]
Discharge Date and Time
Print Language: INDONESIAN
[2025-04-20] MEDS: HEPARIN 9500 UNITS IV (11:02)
[2025-04-20 11:04] LABS: Hematocrit 48.4 % (37.0-47.0); Hemoglobin 15.8 g/dL (12.0-16.0); Mean Corp Hgb Conc. 32.6 g/dL (33.0-37.0); Mean Corpuscular Volume 89.3 fL (81.0-99.0); Nucleated Red Blood Cells % 0 %; Platelet Count 268 10^3/uL (130-400); Red Cell Dist. Width 15.2 % (11.5-14.5)
[2025-04-20 11:16] LABS: INR 1.04; PT 13.9 Sec (11.4-14.6)
[2025-04-20 11:17] LABS: APTT 26.0 Sec (23.4-35.0)
[2025-04-20 11:24] LABS: ALT (SGPT) 23 U/L (0-35); AST (SGOT) 29 U/L (14-36); Albumin 4.3 g/dl (3.5-5.0); Alkaline Phosphatase 53 U/L (38-126); Blood Urea Nitrogen 29 mg/dl (7-17); Calcium 9.4 mg/dl (8.4-10.2); Carbon Dioxide 23 mmol/L (22-30); Chloride 106 mmol/L (98-107); Estimated Creatinine Clearance 62 ml/min; Glucose 100 mg/dl (70-99); Potassium 3.7 mmol/L (3.5-5.1); Sodium 140 mmol/L (135-145); Total Protein 7.7 g/dl (6.3-8.2); eGFR 50.86
--- NOTE | 2025-04-20 11:26 | CON.PUL ---
Consultation
Consultation Request
Date/Time Consultation Requested: 04/20/2025-11:30 AM
Date/Time Consultation Performed: 04/20/2025-11:30 AM
Requesting Provider: Dr. Hernández
Performing Provider: Dr. Best
Reason for Consultation: Pulm embolism
Medical History
-
Chief Complaint: Shortness of breath
History of Present Illness:
64-year-old non-smoking female with a history of hypertension, rheumatoid arthritis on Simponi, hypothyroid, obesity as well as CHF preserved EF presented with shortness of breath for about a week and reported no sedentary existence or recent travel
found to have pulmonary emboli and pulmonary asked to consult on shortness of breath/pulmonary emboli 04/20/2025.Patient states that she noticed increasing shortness of breath about a week ago. She had significant shortness of breath with minimal
exertion and some lightheadedness. She did not have any chest pain. She currently denies any shortness of breath at rest, chest pain, chest tightness, pleurisy, hemoptysis, abdominal pain, or increased leg swelling. She states that her legs and
back. She gotten thinner while she's been on Lasix. She does snore at night, have significant wakefulness after sleep onset, she feels unrefreshed with daytime somnolence.
Past Medical History
Past Medical History: None (Rheumatoid arthritis on Simponi. Hypertension. Hypothyroid. Obesity. Chronic heart failure preserved EF. Left upper extremity cellulitis/lymphangitis 02/2025. Chronic kidney disease stage III. Bladder sling. Left
TKA.)
Social History
Tobacco: Non-smoker
Alcohol: None
Drug: None
Occupational Exposures: No known asbestos exposure
Environmental Exposures: No known tuberculosis exposure
Family History
Family History: Reviewed & Not Pertinent (No known hypercoagulable state)
Allergies / Home Medications
Allergies
Allergy/AdvReac Type Severity Reaction Status Date / Time
Penicillins Allergy Swelling Verified 04/20/25 10:35
meperidine (From Demerol) AdvReac Nausea / Verified 04/20/25 10:35
Vomiting
oxycodone (From Percocet) AdvReac dizziness Verified 04/20/25 10:35
Home Medications
�Medication �Instructions �Recorded �Confirmed �Last Taken �Type
Vitamin D3: 3,000 units PO DAILY Supplement 06/24/20 02/11/25 07/08/20 History
fenofibrate 160 mg tablet 160 mg PO HS HIGH TRIGLYCERIDES 06/24/20 02/11/25 07/13/20 20:00 History
levothyroxine 125 mcg tablet 125 mcg PO DAILY Thyroid 06/24/20 02/11/25 07/14/20 08:00 History
celecoxib 200 mg capsule 200 mg PO DAILY ##0 07/15/20 02/11/25 02/10/25 22:00 Rx
dapagliflozin propanediol 10 mg 10 mg PO DAILY Diabetes 02/11/25 02/11/25 Unknown History
tablet (Farxiga)
furosemide 20 mg tablet 20 mg PO Q OTHER DAY Fluid 02/11/25 02/11/25 Unknown History
Retention/Swelling
gabapentin 300 mg capsule 300 mg PO BID NEUROPATHIC PAIN 02/11/25 02/11/25 Unknown History
multivitamin 1 tab PO DAILY Supplement 02/11/25 02/11/25 Unknown History
azithromycin 250 mg tablet 250 mg PO ONCE #4 tabs 02/13/25 Unknown Rx
cephalexin 500 mg capsule 500 mg PO Q6H 7 days #28 caps 02/13/25 Unknown Rx
Review of Systems
-
Unable to Obtain full review of systems at this time due to: Other (Per HPI)
Vitals / Labs / Diagnostic Testing
Vital Signs
Temp Pulse Resp BP Pulse Ox
97.6 F 84 24 129/79 88
04/20/25 10:31 04/20/25 10:31 04/20/25 10:31 04/20/25 10:31 04/20/25 10:52
Lab Data
04/20/25 10:52
04/20/25 10:52
Laboratory Results
04/20/25
10:52
PT 13.9
INR 1.04
APTT 26.0
Diagnostic Testing:
Physical Exam
-
Exam:
Well-nourished and well-developed in no apparent distress
HEENT-atraumatic, normocephalic
Neck-supple, no JVD, no bruit
Heart-regular rate and rhythm-no murmurs, rubs or gallops
Chest-clear to auscultation, no wheezes, crackles
Back-no tenderness
Abdomen-soft, nontender, nondistended, no hepatosplenomegaly
Extremities-no cyanosis, clubbing, edema and good peripheral pulses
Integument-intact, no rashes, lesions or ecchymosis
Neurology-alert and oriented, nonfocal motor and sensory exam
Assessment
-
64-year-old non-smoking female with a history of hypertension, rheumatoid arthritis on Simponi, hypothyroid, obesity as well as CHF preserved EF presented with shortness of breath for about a week and reported no sedentary existence or recent travel
found to have pulmonary emboli and pulmonary asked to consult on shortness of breath/pulmonary emboli 04/20/2025.
Pulmonary embolism-submassive, no saddle, unprovoked
PESI-83, class II-low risk
Restrictive lung disease from morbid obesity
Conditions present prior to admission:
Rheumatoid arthritis on Simponi.
Hypertension.
Hypothyroid.
Morbid obesity-BMI 44
Chronic heart failure preserved EF.
Left upper extremity cellulitis/lymphangitis 02/2025.
Chronic kidney disease stage III.
Bladder sling. Left TKA.
Plan
Patient will be admitted to telemetry for close observation
Supplemental oxygen as needed
Aspiration precautions
Incentive spirometry
CT chest personally reviewed-see below
Check echocardiogram
Check lower extremity ultrasound
May need eventual hypercoagulable workup
Full PESI and sPESI summarized above
Heparin drip or Lovenox 1 mg/kg every 12 hours
Benefits and risks of thrombolytics therapy were reviewed with patient
Patient has no tachycardia and no hypotension and mild hypoxemia--currently risks of aggressive thrombolytic therapy/thrombectomy outweigh [id number] notified of options, reasons for conservative standard of care therapy and is in
agreement
Bedrest �24 hours.
Obstructive sleep apnea suspected- snores, has significant wakefulness after sleep onset, feels unrefreshed in the morning with daytime somnolence
Associations with untreated sleep apnea have been reviewed. Briefly
Eventual sleep study is recommended-will be arranged in the outpatient setting
DVT prophylaxis-on full anticoagulation
Early nutrition
Early mobilization
Outpatient pulmonary/sleep disorders [id number] PFTs, repeat CT chest, lower extremity ultrasound and sleep study
Outpatient appropriate malignancy screening including colonoscopy
Reviewed with Dr. Hernández from the ED
Critical care statement: A total of 55 minutes of critical care time was provided for this patient today. This includes management of unstable vital signs, evaluation for thrombolytic therapy, management of large pulmonary embolism, evaluation of
the patient at bedside, reviewing the patient's pertinent medical records including radiographs, microbiology, laboratory evaluations, and discussion with primary team, consultants, pharmacy, and critical care nursing.
Diagnostic data:
Chest x-ray 03/27/2024-nonspecific mild bibasilar airspace disease, mild cardiomegaly
Chest x-ray 04/18/2025-NAD
CT chest 04/17/2024-minimal nodular opacifications left greater than right lung bases
CT chest 04/20/2025-pulmonary emboli with right distal main pulmonary artery extending into segmental and subsegmental right pulmonary arteries, right heart strain EF 55-60%, stage II diastolic dysfunction, no significant valvular abnormalities
Echocardiogram 03/27/2024-EF 55-60%, stage II diastolic dysfunction, no significant valvular disease
Data Reviewed
-
EKG: Report reviewed by me
Radiology: Image personally visualized and interpreted and Report reviewed by me
CT Scan: Image personally visualized and interpreted and Report reviewed by me
Medical Tests (Nuc Med, Echo etc): Report reviewed by me
Labs: Labs reviewed by me
Old Records: Reviewed
Total Time Spent with Patient (in minutes): 65
[2025-04-20 11:44] LABS: Troponin I 0.168 ng/ml
[2025-04-20] MEDS: HEPARIN 25000 UNITS/250 ML IV (11:55)
--- NOTE | 2025-04-20 12:04 | HPS.HSE ---
Addendum entered and electronically signed by Robert Crawford MD 04/20/25 14:55:
This is an addendum to H&P written by Shila You on 04/20/2025. �Patient seen and examined independently with INTERPRETATIVE DANCER.
64-year-old female past medical history of hypertension, hypothyroidism, chronic HFpEF, suspected CKD 3, rheumatoid arthritis, obesity, presenting with shortness of breath for a week. �Did have some dizziness today. �No chest pain but does feel
heaviness with exertion. �[employer] ordered D-dimer which was elevated prompting CT PE today showing pulmonary embolism prompting her to come to the emergency room.
No recent surgeries, COVID infection, long periods of immobility, history of malignancy, personal history of pulmonary embolism or family history.
Vital signs show hypoxemia to 88%.
Labs show creatinine 1.2 close to baseline. �Troponin of 0.168. �Cardiac BNP of 7000.
CT PE shows large pulmonary embolism within the distal right main pulmonary artery extending into the segmental/subsegmental arteries of the right lung. �Segmental subsegmental pulm emboli within the left lower lobe and left upper lobe pulmonary
arteries. �There is right heart strain.
Patient with unprovoked submassive pulmonary embolism with hemodynamic stability. �Heparin drip started. �Trend troponins, check echocardiogram. �Check venous ultrasound lower extremities. �Pulmonary consulted.
Original Note:
Family Physician
-
Family Physician: CHASE Tomlinson
Chief Complaint
-
sob
History of Present Illness
64-year-old female with PMH for HTN, Hypothyroidism, CHF, presenting with shortness of breath persisting for about a week, worsening for past few days. denied chest pain but stated some heaviness across her shoulder, upper back. sob worse with
exertion. patient denied fever, chill. stated cough since last night. denied CALDWELL, dizzy or syncope. denied abdominal pain,n,v,d. denied dysuria or hematuria. patient denied any recent travel.denied any hxt for cancer. denied LE edema.
she was noted to elevated D dimer as outpatient. she got CT today with the impression of PE.
Ct with PE. initaited on heparin drip. admitting for further management.
Medical History
Past Medical History
Past Medical History: Reports Other
Additional Past Medical History:
Vitamin D deficiency, acute hypothyroidism, hypertension, rheumatoid arthritis, hyperlipidemia, osteoarthritis, fatty liver, anxiety, urinary incontinence, headache, cellulitis
Past Surgical History: Reports Other
Additional Past Surgical History:
Bladder sling, TKA
Social History
Tobacco: Non-smoker
Alcohol: None
Drug: None
Employment: Employed
Family History
Family History: Not pertinent
Allergies / Home Medications
Allergies reflects when Allergies were last updated in [facility].
Home Medications with original date entered in [facility]
Allergy/Medication List:
Allergies
Allergy/AdvReac Type Severity Reaction Status Date / Time
Penicillins Allergy Swelling Verified 04/20/25 10:35
meperidine (From Demerol) AdvReac Nausea / Verified 04/20/25 10:35
Vomiting
oxycodone (From Percocet) AdvReac dizziness Verified 04/20/25 10:35
Home Medications
fenofibrate 160 mg tablet 160 mg PO HS HIGH TRIGLYCERIDES 06/24/20
dapagliflozin propanediol 10 mg tablet (Farxiga) 10 mg PO DAILY Diabetes 02/11/25
furosemide 20 mg tablet 40 mg PO DAILY Fluid Retention/Swelling 02/11/25
gabapentin 300 mg capsule 300 mg PO BID NEUROPATHIC PAIN 02/11/25
multivitamin 1 tab PO DAILY Supplement 02/11/25
ascorbic acid (vitamin C) 500 mg tablet (Vitamin C) 500 mg PO DAILY Supplement 04/20/25
celecoxib 200 mg capsule 200 mg PO BID Pain 04/20/25
cholecalciferol (vitamin D3) 25 mcg (1,000 unit) tablet (Vitamin D3) 75 mcg PO DAILY Supplement 04/20/25
latanoprost 0.005 % eye drops 1 drp BOTH EYES HS Eye Condition 04/20/25
levothyroxine 112 mcg tablet (Synthroid) 112 mcg PO DAILY@0600 Thyroid 04/20/25
lisinopril 40 mg tablet 40 mg PO DAILY Blood Pressure 04/20/25
Review of Systems
-
Constitutional: Reports No Symptoms
EENT: Reports No Symptoms
Respiratory: Reports Trouble Breathing
Cardiac: Reports No Symptoms
Abdomen/GI: Reports No Symptoms
: Reports No Symptoms
Musculoskeletal: Reports No Symptoms
Skin: Reports No Symptoms
Neurological: Reports No Symptoms
Endocrine: Reports No Symptoms
Hematologic/Lymphatic: Reports No Symptoms
Psych: Reports No Symptoms
Physical Exam
Vital Signs
Vital Signs
Temp Pulse Resp BP Pulse Ox
97.6 F 84 24 129/79 88
04/20/25 10:31 04/20/25 10:31 04/20/25 10:31 04/20/25 10:31 04/20/25 10:52
Physical Exam
General: Well Developed, Well Nourished and No Apparent Distress
HEENT: NormoCephalic, Moist mucous membranes and Atraumatic
Respiratory: Clear
Cardiac: S1/S2 and Regular Rhythm; No Murmur or Rub
GI: Soft, Non Tender, Non Distended and Normal Bowel Sounds; No Organomegaly
Rectal: Deferred by Provider
Musculoskeletal: No Clubbing, No Cyanosis and No Edema
Skin: No Rash
Neuro: AO x 3 and Nonfocal/grossly intact
Psych: Calm
Laboratory Results
-
04/20/25 10:52
04/20/25 10:52
Laboratory Results
PT 13.9 Sec (11.4-14.6) 04/20/25 10:52
INR 1.04 04/20/25 10:52
APTT 26.0 Sec (23.4-35.0) 04/20/25 10:52
Total Bilirubin 1.0 mg/dl (0.2-1.3) 04/20/25 10:52
AST 29 U/L (14-36) 04/20/25 10:52
ALT 23 U/L (0-35) 04/20/25 10:52
Alkaline Phosphatase 53 U/L (38-126) 04/20/25 10:52
Troponin I 0.168 ng/ml H* 04/20/25 10:52
Data Reviewed
-
CT Scan: Report Reviewed by me
Lab Data: Labs Reviewed by me
Impression/Plan
-
#Acute hypoxic respiratory failure secondary to Multiple pulmonary embolism
- Not a thrombectomy candidate
- IV heparin drip
-continue supplemental oxygen to keep second to the 95, wean as tolerated
-obtain ECHO and Duplex.
-chest CT with the impression of Positive for pulmonary embolism, within the right distal main pulmonary artery, extending into the segmental and subsegmental right pulmonary arteries. Segmental and subsegmental pulmonary emboli on the left side.
Right heart strain, RV: LV ratio 3.5.
-pulmonary consulted.
#CKD III
- Creatinine 1.2
-ctm
#Troponin ischemia secondary to demand ischemia secondary to PE
- Troponin 0.168, continue to trend Trope
#RA
- Stable
#Benign Hypertension
#Chronic HFpEF
- Stable. Continue Farxiga and Lasix,lisinopril
- Follow I/Os, daily weights, etc.
Hypothyroidism
- Continue current T4 replacement.
#Morbid Obesity due to excess calories
- Affects all aspects of care.
#DVT Prophylaxis
-heparin drip
Code Status: Full
--- NOTE | 2025-04-20 15:12 | EDCM ---
CM reviewed chart and met with pt and family bedside in ED. Lives with her son and grandson in split level home, [address], has full bath on first floor, 6 steps to second level bedroom.
Independent in ADLs, personal care and ambulation at baseline. Not currently using assistive device but does have RW and cane.
Currently on 4L NC in ED, does not have home O2.
Confirms prescription coverage.
Hx HH in past after knee surgery, no hx SNF
PCP: Mere Mejía
Pharmacy: [facility] for local refills, also uses mail order
Anticipate discharge home, CM will continue to follow for all discharge planning needs.
--- NOTE | 2025-04-20 15:40 | PTCARENOTE ---
Pt received from ED via stretcher. Sating mid 90's on 4L NC. Heparin gtt infusing per orders. Son at bedside. Call santos within reach.
--- NOTE | 2025-04-20 15:46 | CARDSERVLU ---
Echocardiogram with Lumason completed after protocol screening completed. Allergies verified.
Patent IV site: _left FA____
IV site flushed with 0.9% NaCl pre and post administration.
Diluted bolus method utilized to enhance visualization of ventricular javier.
Total volume given: _4.0___ mL
Patient tolerated all procedures well without complications.
[2025-04-20 17:17] LABS: Troponin I 0.447 ng/ml
[2025-04-20] MEDS: PROTONIX 40 MG PO (17:34)
--- NOTE | 2025-04-20 17:40 | PTCARENOTE ---
Pt received from ED via stretcher. Sating mid 90's on 4L NC. Heparin gtt infusing per orders. Son at bedside. Call santos within reach.
[2025-04-20 19:08] LABS: Troponin I 0.611 ng/ml
[2025-04-20 19:17] LABS: APTT 187.7 Sec (23.4-35.0)
[2025-04-20] MEDS: XALATAN OPHTHALMIC SOLUTION 1 DROP BOTH EYES (20:44)
[2025-04-20] MEDS: NEURONTIN 300 MG PO (20:46)
[2025-04-20] MEDS: TRICOR 145 MG PO (20:46)
[2025-04-20 23:42] LABS: Troponin I 0.781 ng/ml
[2025-04-21] VITALS (67 sets, daily range): BP systolic 76–125; BP diastolic 42–111; BMI 42.7
[2025-04-21] MEDS: HEPARIN 25000 UNITS/250 ML IV (01:46)
[2025-04-21 02:23] LABS: Hematocrit 46.2 % (37.0-47.0); Hemoglobin 15.6 g/dL (12.0-16.0); Mean Corp Hgb Conc. 33.8 g/dL (33.0-37.0); Mean Corpuscular Volume 89.5 fL (81.0-99.0); Platelet Count 260 10^3/uL (130-400); Red Cell Dist. Width 15.1 % (11.5-14.5)
[2025-04-21 02:36] LABS: APTT 67.2 Sec (23.4-35.0)
[2025-04-21] MEDS: HEPARIN 4700 UNITS IV (02:52)
--- NOTE | 2025-04-21 04:06 | PTCARENOTE ---
Pt received at beginning of shift resting in bed. AAOx3. Denies any pain or discomfort. Heparin gtt infusing at 20mls/hr. PTT assessment at 1800 resulted 187.7. Per protocol Heparin gtt held for 1 hr then restated at 16mls/hr. Next PTT assessment at
0230 resulted 67.2. Pt was rebolused 4700 units and Heparin gtt increased to 18mls/hr which is where Heparin gtt is currently set. BP's overnight 86/63 - 96/70. HR's 70's-80's. Bertha STONE TT'd and made aware. Order entered for 1 x dose Midodrine
which pt received and currently BP 101/59 map 74. Troponin's continue to increase - last resulted 0.781. Next Troponin at 0600. Pt has difficulty urinating. Unable to use purewick. Placed on bedpan at beginning of shift with UO of 200mls. Bladder
scanned at that time for 562. Pt declined need for straight cath. At approx 0230 pt still without UO. Bladder scanned for 458mls. Pt agreed to attempt bedpan and was able to void approx 300mls. Rebladder scanned for 150mls. SR on CM. Afebrile. POX
on 4L 91-94%. Diminished throughout. CANDELARIA/PALLAVI. Occasional dry command and control cough. Rest of assessment as documented. Turns self in bed. Call santos remains within reach. Will continue to monitor.
[2025-04-21] MEDS: SYNTHROID 112 MCG PO (05:46)
[2025-04-21 06:29] LABS: Troponin I 0.861 ng/ml
[2025-04-21] MEDS: NEURONTIN 300 MG PO ×2 (08:59→19:36)
[2025-04-21] MEDS: LASIX PO ×2 (08:59→09:46)
[2025-04-21] MEDS: FARXIGA 10 MG PO (08:59)
[2025-04-21] MEDS: PROTONIX 40 MG PO (08:59)
[2025-04-21 09:46] LABS: Blood Urea Nitrogen 37 mg/dl (7-17); Calcium 9.7 mg/dl (8.4-10.2); Carbon Dioxide 24 mmol/L (22-30); Chloride 106 mmol/L (98-107); Estimated Creatinine Clearance 52 ml/min; Glucose 108 mg/dl (70-99); Potassium 4.1 mmol/L (3.5-5.1); Sodium 137 mmol/L (135-145); eGFR 42.27
[2025-04-21 10:12] LABS: APTT 174.7 Sec (23.4-35.0)
[2025-04-21] MEDS: LEVOPHED 250 IV (10:53)
[2025-04-21] MEDS: LR 500 IV (10:53)
--- NOTE | 2025-04-21 10:57 | W.PN.HOSP.TC ---
Today's Communication/Plan
-
GIVE IVF , holding BP meds
ok to start levo
c/w IV heparin gtt
Assessment / Plan
Assessment / Plan
Physical Exam
General: Well Developed, Well Nourished and No Apparent Distress
HEENT: NormoCephalic, Moist mucous membranes and Atraumatic
Respiratory: Clear
Cardiac: S1/S2 and Regular Rhythm; No Murmur or Rub
GI: Soft, Non Tender, Non Distended and Normal Bowel Sounds; No Organomegaly
Rectal: Deferred by Provider
Musculoskeletal: No Clubbing, No Cyanosis and No Edema
Skin: No Rash
Neuro: AO x 3 and Nonfocal/grossly intact
Psych: Calm
A/P
#Acute hypoxic respiratory failure secondary to Multiple pulmonary embolism
Hypovolemic shock
Non ischemic myocardial injury
Still having symptoms of sob/ heaviness
c/w IV heparin drip, monitor PTT
Give IVF
Pulmonary started pressure support Levophed
-continue supplemental oxygen to keep second to the 95, wean as tolerated
-obtain ECHO and Duplex.
-chest CT with the impression of Positive for pulmonary embolism, within the right distal main pulmonary artery, extending into the segmental and subsegmental right pulmonary arteries. Segmental and subsegmental pulmonary emboli on the left side.
Right heart strain, RV: LV ratio 3.5.
-pulmonary consulted.
#Acute on chronic CKD IIIA
- Creatinine 1.2, now 1.4. Holding Lasix/ Lisinopril
Give IVF
Low Bp can lead to FELIZ, also she received IV contrast
Monitor for retention
#Troponin elevation secondary to non ischemic myocardial injury
EKG with changes
ECHO LVEF 55-60%, No regional wall motion abnormalities, mild LVH, right ventricular systolic function is severely decreased. Flattened septum in systole - consistent with right ventricle volume overload.
Consulted Cardiology
#RA
No joint swelling
#Benign Hypertension
#Chronic HFpEF
Hypothyroidism
- Continue current T4 replacement.
#Morbid Obesity due to excess calories
- Affects all aspects of care.
#DVT Prophylaxis
-heparin drip
Code Status: Full
Total time spent to see the patient, examined the patient, review data and lab result, discuss treatment plan with patient, consultants, nursing staff around 55 minutes
Anticipated Discharge: > 48 hours
Subjective/Interval History
-
Date of Service: April 21, 2025
Still sob
No chest pain
Low BP
Objective Data
-
Labs:
Laboratory Results
04/21/25 04/21/25 04/21/25
02:15 08:49 08:53
WBC 10.3
Hgb 15.6
Hct 46.2
Plt Count 260
APTT 67.2 H 174.7 H*
Sodium 137
Potassium 4.1
Chloride 106
Carbon Dioxide 24
BUN 37 H
Creatinine 1.4 H
Glucose 108 H
Calcium 9.7
04/21/25
17:30
WBC
Hgb
Hct
Plt Count
APTT Pending
Sodium
Potassium
Chloride
Carbon Dioxide
BUN
Creatinine
Glucose
Calcium
Vital Signs:
Vital Signs
Temp Pulse Resp BP Pulse Ox
97.5 F 79 24 86/65 95
04/21/25 07:25 04/21/25 10:26 04/21/25 10:26 04/21/25 10:26 04/21/25 10:26
I&O
04/20/25 04/21/25 04/22/25
06:59 06:59 06:59
Intake Total 596 / 596
Output Total 200 / 200
Balance 396 / 396
--- NOTE | 2025-04-21 11:52 | CON.CAR ---
Addendum entered and electronically signed by Salvador Nunes MD 04/21/25 13:13:
I saw and examined the patient independently, and performed majority of the MDM.
The PROGRAMMING COORDINATOR's note was reviewed and I agree with the note with changes/additions below.
Comment: 64 yo female with chronic HFPEF admitted with acute PE. She reports SOB/CANDELARIA without chest pain. Exam with RRR, no murmurs, trace edema. EKG: NSR, diffuse TWI. TnI 0.8. Echo: 55-60%, dilated RV, decreased RV fx, PASP 33.
Acute PE with RV strain, elevated troponin, TWI on EKG. Acute non-ischemic myocardial injury. She will continue IV heparin, with eventual transition to eliquis. She may need IR intervention.
Chronic HFPEF. Stable. Continue PO lasix.
No additional cardiology recs at this time. Please call us back with additional questions.
Original Note:
Consultation
Consultation Request
Date/Time Consultation Requested: 04/21/25 5500
Date/Time Consultation Performed: 04/11/25 1152
Requesting Provider: Dr. Blackwell
Performing Provider: Stacie STONE for Dr. Nunes
Reason for Consultation: Abnormal troponin in setting of PE
Medical History
-
Chief Complaint: SOB
History of Present Illness:
64 y/o female with hypertension, dyslipidemia, severe obesity, RA, and HFpEF with presentation for SOB, which has worsened over the past week. She was found to have PE/DVT. We are consulted for abnormal troponin in this setting. She is requiring O2
by NE. She is on heparin gtt. There is consideration for IR treatment. She has mildly increased WOB at the time of my assessment. She is requiring levophed for BP support.
Past Medical History
Past Medical History: CHF, HTN, Hypercholesterolemia and Other (as above)
Social History
Tobacco: Non-Smoker
Family History
Family History: Other (dad: CHF, AFIB, pacemaker)
Allergies / Home Medications
Allergy/AdvReac Type Severity Reaction Status Date / Time
meperidine (From Demerol) Allergy Nausea / Verified 04/20/25 21:12
Vomiting
oxycodone (From Percocet) Allergy dizziness Verified 04/20/25 21:12
Penicillins Allergy Swelling Verified 04/20/25 21:12
of eye as
a child
�Medication �Instructions �Recorded �Confirmed �Type
fenofibrate 160 mg tablet 160 mg PO HS HIGH TRIGLYCERIDES 06/24/20 04/20/25 History
dapagliflozin propanediol 10 mg 10 mg PO DAILY Diabetes 02/11/25 04/20/25 History
tablet (Farxiga)
furosemide 20 mg tablet 40 mg PO DAILY Fluid 02/11/25 04/20/25 History
Retention/Swelling
gabapentin 300 mg capsule 300 mg PO BID NEUROPATHIC PAIN 02/11/25 04/20/25 History
multivitamin 1 tab PO DAILY Supplement 02/11/25 04/20/25 History
ascorbic acid (vitamin C) 500 mg 500 mg PO DAILY Supplement 04/20/25 04/20/25 History
tablet (Vitamin C)
celecoxib 200 mg capsule 200 mg PO BID Pain 04/20/25 04/20/25 History
cholecalciferol (vitamin D3) 25 75 mcg PO DAILY Supplement 04/20/25 04/20/25 History
mcg (1,000 unit) tablet (Vitamin
D3)
latanoprost 0.005 % eye drops 1 drp BOTH EYES HS Eye Condition 04/20/25 04/20/25 History
levothyroxine 112 mcg tablet 112 mcg PO DAILY@0600 Thyroid 04/20/25 04/20/25 History
(Synthroid)
lisinopril 40 mg tablet 40 mg PO DAILY Blood Pressure 04/20/25 04/20/25 History
Review of Systems
-
History Source: Patient
All other systems: Negative unless noted
Respiratory: Trouble Breathing
Physical Exam
Vital Signs
Temp Pulse Resp BP Pulse Ox
97.9 F 74 24 88/65 95
04/21/25 11:34 04/21/25 11:35 04/21/25 11:35 04/21/25 11:35 04/21/25 11:38
Lab Results
04/21/25 02:15
04/21/25 08:53
Troponin I 0.861 ng/ml H* 04/21/25 05:55
Poa-X-Yrzurlwdfav Pept 7080 pg/ml 04/20/25 10:52
Physical Exam
General: Well Developed and Other (mildly increased WOB)
Respiratory: Clear and Other (on O2 by NC)
Cardiac: Regular Rhythm
Musculoskeletal: No Edema
Skin: Warm and Dry
Neuro: AO x 3
Psych: Calm
Impression / Plan
-
Pulmonary embolism/DVT:
-this diagnosis is threat to life
-CT: Positive for pulmonary embolism, within the right distal main pulmonary artery, extending into the segmental and subsegmental right pulmonary arteries. Segmental and subsegmental pulmonary emboli on the left side. Right heart strain, RV: LV
ratio 3.5.
-U/s: Positive for acute occlusive deep venous thrombosis within the right popliteal vein, peroneal vein, and posterior tibial vein.
-echo 04/20/25: Estimated LVEF 55-60%. The right ventricular cavity size is moderately dilated. The right ventricular systolic function is severely decreased. Mild tricuspid regurgitation. Estimated pulmonary artery pressure of 33 mmHg assuming a
right atrial pressure of 3 mmHg. Normal PASP.
-on heparin drip, which requires intensive monitoring
-also requiring Levophed for BP support
-I discussed case with pulmonary/post tensioning ironworker helper- discussing with IR for consideration for procedure
Abnormal troponin: 0.861
-acute, non-ischemic myocardial injury in setting of PE
-echo as noted
HFpEF: chronic
-monitor volume as lasix held and fluids given
FELIZ:
-in setting of acute illness
-fluids given and now on pressor support for hypotension
-monitor closely
Obesity, severe:
-would benefit from weight loss moving forward
Data Reviewed
-
EKG: Tracing Personally Visualized and interpreted
Radiology: Report Reviewed by me
CT Scan: Report Reviewed by me (Positive for pulmonary embolism, within the right distal main pulmonary artery, extending into the segmental and subsegmental right pulmonary arteries. Segmental and subsegmental pulmonary emboli on the left side.
Right heart strain, RV: LV ratio 3.5)
Medical Tests (Nuc Med, Echo etc): Report Reviewed by me (echo as noted)
Labs: Labs Reviewed by me
[2025-04-21] MEDS: NSS 1000 IV ×2 (12:03→23:13)
--- NOTE | 2025-04-21 12:16 | W.PN.PUL3 ---
Today's Communication / Plan
-
- NPO
- Hold additional IVF
- Levophed as needed to keep MAP 65 or above
- Reconsult IR for possible catheter directed therapies
Assessment
-
64-year-old non-smoking female with a history of hypertension, rheumatoid arthritis on Simponi, hypothyroid, obesity as well as CHF preserved EF presented with shortness of breath for about a week and reported no sedentary existence or recent travel
found to have pulmonary emboli and pulmonary asked to consult on shortness of breath/pulmonary emboli 04/20/2025.
#1. Acute hypoxic respiratory failure with Pulmonary embolism-submassive
- Suspect unprovoked
- Currently on 5 ltr O2, MAP 62 after giving IVF bolus, starting Levophed
- RV strain on imaging, RV dilated and decreased function on ECHO
- Will consult with IR regarding catheter directed therapies
- NPO for now
- Hold additional IVF. Levophed as needed to keep MAP 65 or above.
#2. RLE acute DVT
- On Heparin infusion
Conditions present prior to admission:
Rheumatoid arthritis on Simponi.
Hypertension.
Hypothyroid.
Morbid obesity-BMI 44. At risk of sleep disordered breathin
Chronic heart failure preserved EF.
Left upper extremity cellulitis/lymphangitis 02/2025.
Chronic kidney disease stage III.
Bladder sling. Left TKA.
Bedrest �24 hours.
Obstructive sleep apnea suspected- snores, has significant wakefulness after sleep onset, feels un-refreshed in the morning with daytime somnolence
Eventual sleep study is recommended-will be arranged in the outpatient setting
DVT prophylaxis-on full anticoagulation
Early nutrition
Early mobilization
Outpatient pulmonary/sleep disorders [id number] PFTs, repeat CT chest, lower extremity ultrasound and sleep study
Outpatient appropriate malignancy screening including colonoscopy
Reviewed with Dr. Blackwell and IR service.
Critical care statement: A total of 55 minutes of critical care time was provided for this patient today. This includes management of unstable vital signs, evaluation for thrombolytic therapy, management of large pulmonary embolism, evaluation of
the patient at bedside, reviewing the patient's pertinent medical records including radiographs, microbiology, laboratory evaluations, and discussion with primary team, consultants, pharmacy, and critical care nursing.
Diagnostic data:
Chest x-ray 03/27/2024-nonspecific mild bibasilar airspace disease, mild cardiomegaly
Chest x-ray 04/18/2025-NAD
CT chest 04/17/2024-minimal nodular opacifications left greater than right lung bases
CT chest 04/20/2025-pulmonary emboli with right distal main pulmonary artery extending into segmental and subsegmental right pulmonary arteries, right heart strain EF 55-60%, stage II diastolic dysfunction, no significant valvular abnormalities
Echocardiogram 03/27/2024-EF 55-60%, stage II diastolic dysfunction, no significant valvular disease
Subjective Data
-
Date of Service:
Date of Service: April 21, 2025
Subjective:
Sitting in chair, feels short of breath
Review of Systems
Genitourinary: Other (No new symptoms )
Objective Data
Data Reviewed
Vital Signs / I&O / Oxygen:
Vital Signs
Temp Pulse Resp BP Pulse Ox
97.9 F 74 24 88/65 95
04/21/25 11:34 04/21/25 11:35 04/21/25 11:35 04/21/25 11:35 04/21/25 11:38
Intake and Output
04/20/25 04/21/25 04/22/25
06:59 06:59 06:59
Intake Total 596 / 596
Output Total 200 / 200
Balance 396 / 396
SaO2 95
Nasal Cannula flow liters per 4
minute
Physical Exam
General: Comfortable
HEENT: Normocephalic
Cardiovascular: S1-S2
Respiratory: Clear
GI: Soft and Non Distended
Neurology: Awake and Alert
Skin: Warm
Labs/Micro/Reports
Lab Data
04/21/25 02:15
04/21/25 08:53
Laboratory Results
04/20/25 04/21/25 04/21/25
18:24 02:15 08:49
APTT 187.7 H* 67.2 H 174.7 H*
--- NOTE | 2025-04-21 14:00 | PTCARENOTE ---
Rec'd pt this AM. SOB at rest and exertion. OOB to chair and BSC, ok by Dr. Rocha but movement should be conservative. Pt educated. On levo to keep MAP greater than 65. Heparin drip infusing as well. voiding in BSC without issue.
--- NOTE | 2025-04-21 15:37 | PTCARENOTE ---
Report given to JOSEAD RN and Pt transported to IR for Altaplase catheter. Orders placed for ICU transfer.
--- NOTE | 2025-04-21 16:59 | W.PN.UPDATE ---
Update Note
Progress Note Update
- Catheter directed thrombolysis initiated. Before doing so, had long discussion with patient and sons regarding therapy. Small chance of bleeding, arrhythmia, inability to dissolve clot if more chronic in nature.
- R groin accessed via R greater saphenous vein. 7F sheath in place.
-7F APC pigtail catheter placed into distal R main pulmonary artery. 4mg bolus dose of tPA give followed by slow infusion of 0.5mg/hr. 600 units/hr peripheral heparin.
- Pressures measured however the value obtained seems spuriously high (70 mm systolic).
- Plan for lysis check early tomorrow morning.
[2025-04-21] MEDS: CATHFLO/ACTIVASE 1000 MG INF CATH (17:00)
--- NOTE | 2025-04-21 18:24 | PTCARENOTE ---
Rec'd pt at 1715 from IR. Pt AAOx3, GONZALO. Educated pt about keeping right leg straight, HOB flat, pt verbalizes understanding. Monitor SR. Pox 88% on 6LNC. Resp therapist notified, pt placed on 10L midflow, pox 93%. Right venous femoral sheath intact
with tpa infusing at 50mls/hr. Right leg warm, + palpable pulses. Peripheral Heparin infusing at 600units/hr. SBP 120's, Levophed at 1mcg/min--stopped.
[2025-04-21] MEDS: TYLENOL 650 MG PO (19:36)
[2025-04-21 19:56] LABS: Hepatitis C Antibody Negative (Negative)
--- NOTE | 2025-04-21 20:30 | PTCARENOTE ---
assumed care, Ox3, SÁNCHEZ, pt remains flat, c/o 4/10 B/L lower leg and lower back pain refer to MAR, NSR on the monitor, +pulses, trace LE's, lungs diminished @ the bases, MF 10L humidified, Dyspnea on exertion and @ rest, BSx4 round obese, x1 lrg
approximated on BP, 20G PURVI, 22G LFA, R fem venous sheath c alteplase gtt 50ml/hr refer to worklist, Hep gtt per worklist, NS 80ml/hr, family @ bedside updated, CHG bath, call santos within reach, otherwise refer to documentation
[2025-04-21] MEDS: TRICOR 145 MG PO (21:32)
[2025-04-21] MEDS: XALATAN OPHTHALMIC SOLUTION 1 DROP BOTH EYES (21:33)
[2025-04-21] MEDS: ROXICODONE 5 MG PO (23:13)
[2025-04-22] VITALS (39 sets, daily range): BP systolic 75–126; BP diastolic 43–80; BMI 43.0
--- NOTE | 2025-04-22 00:28 | PTCARENOTE ---
systems reviewed, labs sent, pain treated per MAR, pules palpable, no signs of bleeding assessed, otherwise refer to documentation.
[2025-04-22 00:34] LABS: APTT 34.1 Sec (23.4-35.0); INR 1.15; PT 15.1 Sec (11.4-14.6)
[2025-04-22 00:35] LABS: Fibrinogen 252 MG/DL (199-459)
[2025-04-22] MEDS: TYLENOL 650 MG PO (02:40)
[2025-04-22] MEDS: SYNTHROID 112 MCG PO (05:08)
--- NOTE | 2025-04-22 05:30 | PTCARENOTE ---
systems reviewed, labs sent, weight obtained, gtts per worklist, venous sheath intact refer to worklist.
[2025-04-22 05:31] LABS: Hematocrit 42.2 % (37.0-47.0); Hemoglobin 13.8 g/dL (12.0-16.0); Mean Corp Hgb Conc. 32.7 g/dL (33.0-37.0); Mean Corpuscular Volume 91.5 fL (81.0-99.0); Platelet Count 219 10^3/uL (130-400); Red Cell Dist. Width 15.1 % (11.5-14.5)
[2025-04-22 05:44] LABS: INR 1.14; PT 15.0 Sec (11.4-14.6)
[2025-04-22 05:45] LABS: APTT 35.3 Sec (23.4-35.0); Fibrinogen 232 MG/DL (199-459)
[2025-04-22 05:56] LABS: ALT (SGPT) 17 U/L (0-35); AST (SGOT) 25 U/L (14-36); Albumin 3.4 g/dl (3.5-5.0); Alkaline Phosphatase 51 U/L (38-126); Blood Urea Nitrogen 32 mg/dl (7-17); Calcium 9.0 mg/dl (8.4-10.2); Carbon Dioxide 21 mmol/L (22-30); Chloride 110 mmol/L (98-107); Estimated Creatinine Clearance 61 ml/min; Glucose 111 mg/dl (70-99); Potassium 4.5 mmol/L (3.5-5.1); Sodium 138 mmol/L (135-145); Total Protein 6.2 g/dl (6.3-8.2); eGFR 50.86
[2025-04-22] MEDS: FARXIGA 10 MG PO (07:25)
[2025-04-22] MEDS: NEURONTIN 300 MG PO ×2 (07:25→21:15)
[2025-04-22] MEDS: PROTONIX 40 MG PO (07:25)
--- NOTE | 2025-04-22 08:30 | PTCARENOTE ---
Rec'd pt at 0700. Pt AAOx3, HOB flat. Right femoral venous sheath with tpa infusing at 50mls/hr. Heparin at 600units/hr, infusing peripherally. Dressing C/D/I, +palpable peripheral pulses. Monitor SR. pox 95% 10L midflow, pt states that she 'feels
stuffy'. +BS, abd soft/nt. Voiding on bedpan. Family at bedside. Pt transferred to IR at approx 0815.
--- NOTE | 2025-04-22 09:06 | W.PN.UPDATE ---
Update Note
Progress Note Update
- Catheter directed thrombolysis completed. ~12 mg tPA administered through the catheter overnight including bolus dose. Patient subjectively says she is feeling better, no pressors. Pressure 120 systolic. HR in 70s.
- We measured pressures, however systolic reading was in the 80s, unsure of accuracy.
- Pt anxious to have sheath removed and sit up. With stable vitals, subjective improvement, thrombolysis terminated.
- R groin sheath removed. Bedrest for 1 hr then can sit up and re-start heparin per primary team.
--- NOTE | 2025-04-22 09:36 | W.PN.HOSP.TC ---
Today's Communication/Plan
-
IV heparin gtt for DVT/PE
IVF, can stop
Ok for diet
Assessment / Plan
Assessment / Plan
Physical Exam
General: Well Developed, Well Nourished and No Apparent Distress
HEENT: NormoCephalic, Moist mucous membranes and Atraumatic
Respiratory: Clear
Cardiac: S1/S2 and Regular Rhythm; No Murmur or Rub
GI: Soft, Non Tender, Non Distended and Normal Bowel Sounds; No Organomegaly
Rectal: Deferred by Provider
Musculoskeletal: No Clubbing, No Cyanosis and No Edema
Skin: No Rash
Neuro: AO x 3 and Nonfocal/grossly intact
Psych: Calm
A/P
#Acute hypoxic respiratory failure secondary to Multiple pulmonary embolism
Hypovolemic shock, resolved.
Non ischemic myocardial injury
Less sob but still on oxygen
s/p 2 times catheter directed thrombolysis by IR with good clinical improvement.
c/w IV heparin drip, monitor PTT, change protocol to PE/ DVT protocol .
s/p IVF, can stop now
Off Pressure support gtt
-continue supplemental oxygen, wean as tolerated
-obtained ECHO with no wall motion abnormalities but RV systolic function was severely decreased ( done prior to thrombolytic therapy)
US showed R LE DVT ( occlusive deep venous thrombosis within the right popliteal vein, peroneal vein, and posterior tibial vein)
-chest CT with the impression of Positive for pulmonary embolism, within the right distal main pulmonary artery, extending into the segmental and subsegmental right pulmonary arteries. Segmental and subsegmental pulmonary emboli on the left side.
Right heart strain, RV: LV ratio 3.5.
-pulmonary consulted.
#Acute on chronic CKD IIIA
- Creatinine 1.2, up to 1.4 then down to 1.2
Holding Lasix/ Lisinopril
s/p IVF
Likely combination of pre-renal, also she received IV contrast
Monitor for retention
Monitor BMP
#Chronic HFPEF, not acute
Troponin elevation secondary to non ischemic myocardial injury
No chest pain
EKG with changes
ECHO LVEF 55-60%, No regional wall motion abnormalities, mild LVH, right ventricular systolic function is severely decreased. Flattened septum in systole - consistent with right ventricle volume overload.
Consulted Cardiology , c/w treatment for PE. Acute non-ischemic myocardial injury.
#RA
No joint swelling
#Benign Hypertension
#Chronic HFpEF
Hypothyroidism
- Continue current T4 replacement.
#Morbid Obesity due to excess calories
- Affects all aspects of care.
#DVT Prophylaxis
-heparin drip
Code Status: Full
Total time spent to see the patient, examined the patient, review data and lab result, discuss treatment plan with patient, consultants, family, nursing staff around 59 minutes
Anticipated Discharge: > 48 hours
Subjective/Interval History
-
Date of Service: April 22, 2025
No chest pain
Feels better overall
Some discomfort from right groin catheter
Objective Data
-
Labs:
Laboratory Results
04/22/25 04/22/25 04/22/25
00:11 05:19 09:32
WBC 8.4 Cancelled
Hgb 13.8 Cancelled
Hct 42.2 Cancelled
Plt Count 219 Cancelled
PT 15.1 H 15.0 H
INR 1.15 1.14
APTT 34.1 35.3 H Cancelled
Sodium 138
Potassium 4.5
Chloride 110 H
Carbon Dioxide 21 L
BUN 32 H
Creatinine 1.2 H
Glucose 111 H
Calcium 9.0
Total Bilirubin 0.8
AST 25
ALT 17
Alkaline Phosphatase 51
04/22/25 04/22/25
12:00 18:00
WBC
Hgb
Hct
Plt Count
PT Cancelled Cancelled
INR Cancelled Cancelled
APTT
Sodium
Potassium
Chloride
Carbon Dioxide
BUN
Creatinine
Glucose
Calcium
Total Bilirubin
AST
ALT
Alkaline Phosphatase
Vital Signs:
Vital Signs
Temp Pulse Resp BP Pulse Ox
97.7 F 70 20 122/80 96
04/22/25 07:18 04/22/25 09:00 04/22/25 09:00 04/22/25 09:00 04/22/25 09:00
I&O
04/21/25 04/22/25 04/23/25
06:59 06:59 06:59
Intake Total 596 / 596 1975 / 2112 358 / 358
Output Total 200 / 200 500 / 700 200 / 200
Balance 396 / 396 1476 / 1412 158 / 158
--- NOTE | 2025-04-22 09:37 | W.PN.INTV ---
Today's Communication / Plan
Recommendations
- Resume heparin infusion after sheath removal
- Continue titrate oxygen as tolerated, target SpO2 more than 90%
- If stays off Levophed, will consider transferring out of ICU
- Pulmonary service will continue to follow along
Assessment
-
64-year-old non-smoking female with a history of hypertension, rheumatoid arthritis on Simponi, hypothyroid, obesity as well as CHF preserved EF presented with shortness of breath for about a week and reported no sedentary existence or recent travel
found to have pulmonary emboli and pulmonary asked to consult on shortness of breath/pulmonary emboli 04/20/2025.
#1. Acute hypoxic respiratory failure with Pulmonary embolism-submassive
- Suspect unprovoked
- S/p IR guided catheter directed thrombolysis, initiated 04/21
- Patient reports improving dyspnea, off Levophed infusion.
- RV strain on imaging, RV dilated and decreased function on ECHO
- Scheduled for sheath removal later today, will resume heparin infusion postprocedure
#2. RLE acute DVT
- On Heparin infusion
#3. Pulmonary HTN, RV dysfunction
ECHO 04/2025: 1. Contrast was used.
2. Normal left ventricular size, and systolic function. Estimated LVEF 55-60%.
3. The right ventricular cavity size is moderately dilated. The right ventricular systolic function is severely decreased.
4. Mild tricuspid regurgitation. Estimated pulmonary artery pressure of 33 mmHg assuming a right atrial pressure of 3 mmHg. Normal PASP.
5. Compared to 03/27/24: right ventricle is now dilated with decreased function.
- Related to acute pulmonary embolism
- Discussed with IR on 04/21, catheter directed thrombolysis initiated in view of borderline blood pressure requiring Levophed as well as oxygen requirement with ongoing dyspnea
- Cardiology service also on case
Conditions present prior to admission:
Rheumatoid arthritis on Simponi.
Hypertension.
Hypothyroid.
Morbid obesity-BMI 44. At risk of sleep disordered breathin
Chronic heart failure preserved EF.
Left upper extremity cellulitis/lymphangitis 02/2025.
Chronic kidney disease stage III.
Bladder sling. Left TKA.
Obstructive sleep apnea suspected- snores, has significant wakefulness after sleep onset, feels un-refreshed in the morning with daytime somnolence
Eventual sleep study is recommended-will be arranged in the outpatient setting
DVT prophylaxis-on full anticoagulation
Early nutrition
Early mobilization
Outpatient pulmonary/sleep disorders [id number] PFTs, repeat CT chest, lower extremity ultrasound and sleep study
Outpatient appropriate malignancy screening including colonoscopy
Reviewed with Dr. Blackwell
Critical care statement: A total of 45 minutes of critical care time was provided for this patient today. This includes management of unstable vital signs, evaluation for thrombolytic therapy, management of large pulmonary embolism, evaluation of
the patient at bedside, reviewing the patient's pertinent medical records including radiographs, microbiology, laboratory evaluations, and discussion with primary team, consultants, pharmacy, and critical care nursing.
Diagnostic data:
Chest x-ray 03/27/2024-nonspecific mild bibasilar airspace disease, mild cardiomegaly
Chest x-ray 04/18/2025-NAD
CT chest 04/17/2024-minimal nodular opacifications left greater than right lung bases
CT chest 04/20/2025-pulmonary emboli with right distal main pulmonary artery extending into segmental and subsegmental right pulmonary arteries, right heart strain EF 55-60%, stage II diastolic dysfunction, no significant valvular abnormalities
Echocardiogram 03/27/2024-EF 55-60%, stage II diastolic dysfunction, no significant valvular disease
Subjective Dataa
Subjective Data
Date of Service:
Date of Service: April 22, 2025
Subjective:
Patient comfortably lying in bed in no acute distress. Reports improving dyspnea.
Review of Systems
Genitourinary: Other (All 14 systems reviewed and negative except as stated above in the history of present illness.)
Objective Data
Data Reviewed
Vital Signs / I&O / Oxygen:
Vital Signs
Temp Pulse Resp BP Pulse Ox
97.7 F 70 20 122/80 96
04/22/25 07:18 04/22/25 09:00 04/22/25 09:00 04/22/25 09:00 04/22/25 09:00
Intake and Output
04/21/25 04/22/25 04/23/25
06:59 06:59 06:59
Intake Total 596 / 596 1975 / 2111 358 / 358
Output Total 200 / 200 500 / 700 200 / 200
Balance 396 / 396 1476 / 1412 158 / 158
SaO2 96
Nasal Cannula flow liters per 10
minute
Physical Exam
General: Comfortable
HEENT: Normocephalic
Cardiovascular: S1-S2
Respiratory: Clear and Non-Labored Respirations
GI: Soft and Non Distended
Neurology: Awake and Alert
Skin: Warm
Labs/Micro/Reports
Lab Data
04/22/25 09:32
04/22/25 05:19
Laboratory Results
04/21/25 04/21/25 04/22/25
08:49 17:30 00:11
PT Cancelled 15.1 H
INR Cancelled 1.15
APTT 174.7 H* Cancelled 34.1
04/22/25 04/22/25 04/22/25
05:19 09:32 12:00
PT 15.0 H Cancelled
INR 1.14 Cancelled
APTT 35.3 H Cancelled
04/22/25
18:00
PT Cancelled
INR Cancelled
APTT
[2025-04-22] MEDS: ROXICODONE 5 MG PO (10:05)
--- NOTE | 2025-04-22 10:09 | PTCARENOTE ---
Rec'd pt from IR at 0900. Right groin dressing C/D/I, +pulses. Pt with HOB flat x1hr, HOB raised at 1000. Heparin gtts changed to PE/DVT protocol, rate adjusted to 2000untis/hr per orders. Family remains at bedside. PRN Oxycodone for back pain.
[2025-04-22] MEDS: NSS IV (11:41)
--- NOTE | 2025-04-22 14:43 | PTCARENOTE ---
Pt with relief of pain after medicated with oxycodone, slept for a few hours this afternoon. O2 weaned down to 6L, pox 94-96%. Pt assisted OOB to BSC, voiding yellow urine. Right groin site remains C/D/I.
[2025-04-22 15:54] LABS: APTT 141.2 Sec (23.4-35.0)
[2025-04-22] MEDS: HEPARIN 25000 UNITS/250 ML IV (16:17)
[2025-04-22] MEDS: XALATAN OPHTHALMIC SOLUTION 1 DROP BOTH EYES (21:15)
[2025-04-22] MEDS: TRICOR 145 MG PO (21:15)
[2025-04-22 23:03] LABS: APTT 101.0 Sec (23.4-35.0)
[2025-04-23] VITALS (18 sets, daily range): BP systolic 95–153; BP diastolic 58–87; O2SAT 95; BMI 44.0
--- NOTE | 2025-04-23 00:08 | PTCARENOTE ---
pt ambulatory to commode overnight with supervision. remains on 3L NC. heparin gtt continues. call santos in reach.
[2025-04-23] MEDS: SYNTHROID 112 MCG PO (04:39)
[2025-04-23 05:02] LABS: Hematocrit 42.1 % (37.0-47.0); Hemoglobin 13.7 g/dL (12.0-16.0); Mean Corp Hgb Conc. 32.5 g/dL (33.0-37.0); Mean Corpuscular Volume 91.5 fL (81.0-99.0); Platelet Count 220 10^3/uL (130-400); Red Cell Dist. Width 15.1 % (11.5-14.5)
[2025-04-23 05:09] LABS: APTT 138.2 Sec (23.4-35.0)
--- NOTE | 2025-04-23 05:31 | PTCARENOTE ---
AM labs sent. no changes in assessment noted, remains on 3L NC and heparin gtt protocol. call santos in reach.
[2025-04-23 05:57] LABS: Blood Urea Nitrogen 23 mg/dl (7-17); Calcium 9.2 mg/dl (8.4-10.2); Carbon Dioxide 20 mmol/L (22-30); Chloride 112 mmol/L (98-107); Estimated Creatinine Clearance 68 ml/min; Glucose 114 mg/dl (70-99); Potassium 4.6 mmol/L (3.5-5.1); Sodium 138 mmol/L (135-145); eGFR 56.46
[2025-04-23] MEDS: FARXIGA 10 MG PO (07:50)
[2025-04-23] MEDS: NEURONTIN 300 MG PO ×2 (07:50→20:10)
[2025-04-23] MEDS: PROTONIX 40 MG PO (07:50)
--- NOTE | 2025-04-23 08:12 | W.PN.INTV ---
Today's Communication / Plan
Recommendations
- Okay to transition off heparin drip to NOAC, preferably Eliquis, tonight or later tomorrow morning
- Recommend case management consult to assess affordability of Eliquis
- Recommend outpatient evaluation including PFTs, possibly 6 MWT (as patient is currently on 2 L/min nasal cannula), discussed sleep disordered breathing and would repeat echo in ~4-6 weeks
- Continue titrate oxygen as tolerated, target SpO2 >90-94%; if resting SaO2 is <96% on room air, then check ambulatory pulse oximetry prior to discharge
- No need for vasopressors
- Stable for downgrade out of ICU to telemetry; pulmonary service will continue to briefly follow along
Assessment
-
64-year-old non-smoking female with a history of hypertension, rheumatoid arthritis on Simponi, hypothyroid, obesity as well as CHF preserved EF presented with shortness of breath for about a week and reported no sedentary existence or recent travel
found to have pulmonary emboli and pulmonary asked to consult on shortness of breath/pulmonary emboli 04/20/2025.
#1. Acute hypoxic respiratory failure with Pulmonary embolism-submassive
- Suspect unprovoked
- S/p IR guided catheter directed thrombolysis, initiated 04/21 - -> sheath removed yesterday on 04/22
- Patient reports improving dyspnea -off pressors now for >24 hours and remains hemodynamically stable
- RV strain on imaging, RV dilated and severely decreased systolic function on transthoracic echo - repeat echo as an outpatient in ~4-6 weeks to assure RV function normalizes
#2. RLE acute DVT from the popliteal vein in 2 the peroneal vein + posterior tibial vein
- On Heparin infusion
- Transition to Eliquis tonight, or at the latest tomorrow morning
- Recommend case management consult to assess the affordability of Eliquis
#3. Pulmonary HTN, RV dysfunction
ECHO 04/2025: 1. Contrast was used.
2. Normal left ventricular size, and systolic function. Estimated LVEF 55-60%.
3. The right ventricular cavity size is moderately dilated. The right ventricular systolic function is severely decreased.
4. Mild tricuspid regurgitation. Estimated pulmonary artery pressure of 33 mmHg assuming a right atrial pressure of 3 mmHg. Normal PASP.
5. Compared to 03/27/24: right ventricle is now dilated with decreased function.
- Related to acute pulmonary embolism
- Discussed with IR on 04/21, catheter directed thrombolysis initiated in view of borderline blood pressure requiring Levophed as well as oxygen requirement with ongoing dyspnea
- Cardiology service also on case
Conditions present prior to admission:
Rheumatoid arthritis on Simponi.
Hypertension.
Hypothyroid.
Morbid obesity-BMI 44. At risk of sleep disordered breathing
Chronic heart failure preserved EF.
Left upper extremity cellulitis/lymphangitis 02/2025.
Chronic kidney disease stage III.
Bladder sling. Left TKA.
Obstructive sleep apnea suspected- snores, has significant wakefulness after sleep onset, feels un-refreshed in the morning with daytime somnolence
Eventual sleep study is recommended-will be discussed in the outpatient setting
DVT prophylaxis-on full anticoagulation
Early nutrition
Early mobilization
Outpatient pulmonary/sleep disorders [id number] PFTs, repeat CT chest, lower extremity ultrasound and sleep study
Outpatient appropriate malignancy screening including colonoscopy
Reviewed with Dr. Gunter
Patient is stable for downgrade out of ICU to telemetry. Pulmonary service will continue to briefly follow along
Diagnostic data:
Chest x-ray 03/27/2024-nonspecific mild bibasilar airspace disease, mild cardiomegaly
Chest x-ray 04/18/2025-NAD
CT chest 04/17/2024-minimal nodular opacifications left greater than right lung bases
CT chest 04/20/2025-pulmonary emboli with right distal main pulmonary artery extending into segmental and subsegmental right pulmonary arteries, right heart strain EF 55-60%, stage II diastolic dysfunction, no significant valvular abnormalities
Echocardiogram 03/27/2024-EF 55-60%, stage II diastolic dysfunction, no significant valvular disease
Total time spent today was 57 minutes for this encounter. Time includes reviewing laboratory test/imaging results, reviewing pertinent medical records, obtaining and reviewing medical history, performing an appropriate exam, ordering medications,
tests and procedures. Time also includes documentation of this encounter, coordinating patient care and communicating with other healthcare professionals. Total time does not include separately billed tests performed on this date of service.
Subjective Dataa
Subjective Data
Date of Service:
Date of Service: April 23, 2025
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
Subjective:
Patient seen and evaluated this morning. Sitting in chair in no acute distress, with sister, Geraldine, present at bedside. Patient on 2 L/min nasal cannula, saturating 96% with heart rate 71 and BP 121/64. She says she is not sure if she is short of
breath given that she has been sitting all day - normally she is 'on the move.' She currently denies SOB at rest, or chest pain, CALDWELL, nausea, fevers or chills.
Review of Systems
General: Other (Negative unless mentioned above)
Objective Data
Data Reviewed
Vital Signs / I&O / Oxygen:
Vital Signs
Temp Pulse Resp BP Pulse Ox
98.3 F 69 21 95/58 95
04/23/25 07:29 04/23/25 06:00 04/23/25 06:00 04/23/25 06:00 04/23/25 07:53
Intake and Output
04/22/25 04/23/25 04/24/25
06:59 06:59 06:59
Intake Total 1975 / 2 1806 / 1818
Output Total 500 / 700 900 / 900
Balance 1476 / 1412 906 / 918
SaO2 95
Nasal Cannula flow liters per 3
minute
Physical Exam
General: Respiratory Distress (negative), Comfortable and Chills (negative)
HEENT: Normocephalic and Anicteric
Cardiovascular: S1-S2 and Peripheral Edema (Trace lower extremity edema bilaterally)
Respiratory: Wheeze (negative), Crackles (Mild rales heard at the left base), Rhonchi (negative), Non-Labored Respirations and Stridor (negative)
GI: Soft, Distended (Abdominal obesity), Tender and Non Tender
Neurology: Awake, Alert, Oriented and Tremors (negative)
Skin: Warm, Dry, Cyanosis (negative) and Jaundice (negative)
Labs/Micro/Reports
Lab Data
04/23/25 04:50
04/23/25 04:50
Laboratory Results
04/22/25 04/22/25 04/22/25
09:32 12:00 15:33
PT Cancelled
INR Cancelled
APTT Cancelled 141.2 H
04/22/25 04/22/25 04/23/25
18:00 22:42 04:50
PT Cancelled
INR Cancelled
APTT 101.0 H 138.2 H
--- NOTE | 2025-04-23 09:18 | W.PN.HOSP.TC ---
Today's Communication/Plan
-
Anticoagulation
Assessment / Plan
Assessment / Plan
Physical exam:
General: Acutely ill
HEENT: Normocephalic, Atraumatic and Moist Mucous Membranes
Respiratory: Clear to Auscultation; Negative Wheezes, Rales or Rhonchi
Cardiac: Regular Rhythm and S1/S2
GI: Soft, Nontender and Nondistended
Musculoskeletal: No Clubbing, No Cyanosis and No Edema
Neuro: Awake, Alert and Oriented, no neurological deficit
Psych: Calm
A/P:
Acute hypoxic respiratory failure:
Due to PE
Continue supplemental oxygen
Discussed with family at bedside
Acute submassive PE and right lower extremity DVT:
Status post catheter directed thrombolytics
Continue heparin drip
Plan to change to DOAC tomorrow
Increase activity as tolerated
Hypotension:
Likely cardiogenic shock, POA due to PE
Off pressors now
Continue to monitor blood pressure and hemodynamics
FELIZ:
Creatinine 1.1 today
Creatinine peaked to 1.4 baseline around 0.9
Suspected VARINDER:
Needs sleep studies as outpatient
Chronic HFpEF:
Diuretics on hold to avoid hypotension
KODY inhibitor and SGLT2 on hold to avoid hypotension
Will restart either later today or tomorrow
Hypothyroidism:
Continue thyroid replacement
Other medical problems:
Rheumatoid arthritis
Morbid obesity
Hypertension
Chronic kidney disease stage IIIa
DVT prophylaxis:
On treatment with heparin drip
CODE STATUS:
Full code
Total time spent on today's encounter was 55 minutes which included time spent in counseling the patient/family regarding diagnosis and treatment plan as listed above, goals of care, and symptom management. Case was discussed with nursing staff,
specialists, and care coordinators/case management. All labs and imaging personally reviewed by me. Remainder the time spent in detailed review of previous records, lab data, imaging, and other medical provider documentation.
Anticipated Discharge: 24 - 48 hours
Subjective/Interval History
-
Date of Service: April 23, 2025
Patient on supplemental oxygen. No chest pain. No dyspnea but has not moved around much yet.
Objective Data
-
Labs:
Laboratory Results
04/22/25 04/23/25 04/23/25
22:42 04:50 12:15
WBC 9.8
Hgb 13.7
Hct 42.1
Plt Count 220
APTT 101.0 H 138.2 H Pending
Sodium 138
Potassium 4.6
Chloride 112 H
Carbon Dioxide 20 L
BUN 23 H
Creatinine 1.1 H
Glucose 114 H
Calcium 9.2
Vital Signs:
Vital Signs
Temp Pulse Resp BP Pulse Ox
98.3 F 69 21 95/58 95
04/23/25 07:29 04/23/25 06:00 04/23/25 06:00 04/23/25 06:00 04/23/25 07:53
I&O
04/22/25 04/23/25 04/24/25
06:59 06:59 06:59
Intake Total 1975 / 2 1806 / 1818
Output Total 500 / 700 900 / 900
Balance 1476 / 1412 906 / 918
--- NOTE | 2025-04-23 10:00 | PTCARENOTE ---
Received pt in bed, AOx3, NSR 60's 3L NC, BP wnl, titrated to 2L NC, LS diminished, CANDELARIA. Assisted OOB to chair. Tolerating regular diet, obese round belly, + BM. Voiding w/o difficulty. R groin dressing c/d/i. Heparin gtt infusing @ 1200 units/hr.
Full assessment as documented. Will continue to monitor.
[2025-04-23 12:59] LABS: APTT 50.5 Sec (23.4-35.0)
[2025-04-23] MEDS: HEPARIN 25000 UNITS/250 ML IV (13:19)
[2025-04-23] MEDS: HEPARIN 9500 UNITS IV (13:29)
--- NOTE | 2025-04-23 14:46 | CM ---
Will transition off heparin drip to PO med, titrate O2, downgrade to telemetry. Discharge POC: TBD. Await therapy recommendation. Check need for HH RN.
--- NOTE | 2025-04-23 19:00 | PTCARENOTE ---
vitals verified from prev shift, can only verify accuracy of VS starting at 1900 for shift.
[2025-04-23 20:43] LABS: APTT 109.4 Sec (23.4-35.0)
--- NOTE | 2025-04-23 21:35 | PTCARENOTE ---
vss,pt tx to 405-1.
--- NOTE | 2025-04-23 21:50 | PTCARENOTE ---
Pt received to 4E from ICU awake & oriented x3. Mild CANDELARIA noted. Denies specific pain, but rather mild generaized discomfort since being OOB/chair for a while. Lungs clear. Occas dry cough. Denies any chest pain. Dsg to rt groin dry & intact. NV
checks WNL. Plan of care reviewed w/pt.
[2025-04-23] MEDS: TYLENOL 650 MG PO (22:15)
[2025-04-23] MEDS: TRICOR 145 MG PO (22:16)
[2025-04-23] MEDS: XALATAN OPHTHALMIC SOLUTION 1 DROP BOTH EYES (22:18)
[2025-04-24] VITALS (7 sets, daily range): BP systolic 111–131; BP diastolic 64–77; O2SAT 95; BMI 43.4
[2025-04-24 04:07] LABS: APTT > 200 Sec (23.4-35.0)
[2025-04-24] MEDS: HEPARIN 25000 UNITS/250 ML IV (06:19)
[2025-04-24] MEDS: SYNTHROID 112 MCG PO (06:27)
[2025-04-24 07:30] LABS: Hematocrit 42.9 % (37.0-47.0); Hemoglobin 13.7 g/dL (12.0-16.0); Mean Corp Hgb Conc. 31.9 g/dL (33.0-37.0); Mean Corpuscular Volume 91.5 fL (81.0-99.0); Platelet Count 254 10^3/uL (130-400); Red Cell Dist. Width 15.1 % (11.5-14.5)
[2025-04-24] MEDS: ELIQUIS 10 MG PO ×2 (08:58→20:34)
[2025-04-24] MEDS: VITAMIN D3 (cholecalciferol) 75 MCG PO (08:59)
[2025-04-24] MEDS: FARXIGA 10 MG PO (08:59)
[2025-04-24] MEDS: NEURONTIN 300 MG PO ×2 (08:59→20:34)
[2025-04-24] MEDS: THERAGRAN 1 TABLET PO (08:59)
[2025-04-24] MEDS: VITAMIN C 500 MG PO (08:59)
--- NOTE | 2025-04-24 09:25 | W.PN.PUL3 ---
Today's Communication / Plan
-
Doing well, weaning down O2, eventual home O2 eval
IS efforts, OOB/PT
Transitioned to Eliquis per team
Can likely arrange for d/c per team, we will arrange OP FU
Assessment
-
64-year-old non-smoking female with a history of hypertension, rheumatoid arthritis on Simponi, hypothyroid, obesity as well as CHF preserved EF presented with shortness of breath for about a week and reported no sedentary existence or recent travel
found to have pulmonary emboli and pulmonary asked to consult on shortness of breath/pulmonary emboli 04/20/2025.
Acute hypoxic respiratory failure
Massive Pulmonary embolism s/p IR directed thrombolysis 04/22/25
Obstructive shock on pressors, briefly/resolved
RLE acute DVT
Pulmonary HTN
RV dysfunction
Conditions present prior to admission:
Rheumatoid arthritis on Simponi.
Hypertension.
Hypothyroid.
Morbid obesity-BMI 44. At risk of sleep disordered breathin
Chronic heart failure preserved EF.
Left upper extremity cellulitis/lymphangitis 02/2025.
Chronic kidney disease stage III.
Bladder sling. Left TKA.
Plan
PE-- Suspect unprovoked
Currently on 1L O2, weaned from 5L
Home O2 eval
IS efforts
MAP 62 after giving IVF bolus, initially on pressors, now off
RV strain on imaging, RV dilated and decreased function on ECHO
Transitioned to Eliquis this AM, tolerating
Recommend case management consult to assess the affordability of Eliquis
Obstructive sleep apnea suspected- snores, has significant wakefulness after sleep onset, feels un-refreshed in the morning with daytime somnolence
Eventual sleep study is recommended-will be arranged in the outpatient setting
DVT prophylaxis-on full anticoagulation
Early nutrition
Early mobilization
Outpatient pulmonary/sleep disorders [id number] PFTs, repeat CT chest, lower extremity ultrasound and sleep study
Outpatient appropriate malignancy screening including colonoscopy
Reviewed with Dr. Blackwell and IR service.
Discharge planning per team, we will arrange OP FU
Diagnostic Data:
Chest x-ray 03/27/2024-nonspecific mild bibasilar airspace disease, mild cardiomegaly
Chest x-ray 04/18/2025-NAD
CT chest 04/17/2024-minimal nodular opacifications left greater than right lung bases
CT chest 04/20/2025-pulmonary emboli with right distal main pulmonary artery extending into segmental and subsegmental right pulmonary arteries, right heart strain EF 55-60%, stage II diastolic dysfunction, no significant valvular abnormalities
Echocardiogram 03/27/2024-EF 55-60%, stage II diastolic dysfunction, no significant valvular disease
ECHO 04/2025: 1. Contrast was used.
2. Normal left ventricular size, and systolic function. Estimated LVEF 55-60%.
3. The right ventricular cavity size is moderately dilated. The right ventricular systolic function is severely decreased.
4. Mild tricuspid regurgitation. Estimated pulmonary artery pressure of 33 mmHg assuming a right atrial pressure of 3 mmHg. Normal PASP.
5. Compared to 03/27/24: right ventricle is now dilated with decreased function.
Total time spent on this consultation/encounter __50__ minutes which includes review of history, physical exam, medications, laboratory data, personal review of imaging, extensive review of outpatient records, discussion with care team and
respiratory therapy.
Subjective Data
-
Date of Service:
Date of Service: April 24, 2025
Chief Complaint: Pulmonary Follow Up
Subjective:
Doing well, no complaints
Weaning down on O2, sitting in chair
Objective Data
Data Reviewed
Vital Signs / I&O / Oxygen:
Vital Signs
Temp Pulse Resp BP Pulse Ox
97.7 F 66 16 123/74 98
04/24/25 07:30 04/24/25 07:30 04/24/25 07:30 04/24/25 07:30 04/24/25 07:30
Intake and Output
04/23/25 04/24/25 04/25/25
06:59 06:59 06:59
Intake Total 1806 / 1818 564 / 564
Output Total 900 / 900
Balance 906 / 918 564 / 564
SaO2 98
Nasal Cannula flow liters per 2
minute
Physical Exam
General: Comfortable, Good Appetite and Other (NAD)
HEENT: Normocephalic, Sinus Tenderness and Moist Mucous Membranes
Cardiovascular: S1-S2 and Regular Rhythm
Respiratory: Clear and Non-Labored Respirations
GI: Soft, Non Distended and Non Tender
Neurology: Awake, Alert, Oriented and No Motor Deficits
Skin: Warm, Dry and Good Color
Labs/Micro/Reports
Lab Data
04/24/25 07:20
Laboratory Results
04/23/25 04/23/25 04/23/25
12:15 12:39 20:01
APTT Cancelled 50.5 H Cancelled
04/23/25 04/23/25 04/24/25
20:18 20:18 03:19
APTT 109.4 H Cancelled > 200 H*
--- NOTE | 2025-04-24 09:53 | PTCARENOTE ---
heparin gtt off. Eliquis 10 mg given this AM
[2025-04-24 11:21] LABS: Blood Urea Nitrogen 27 mg/dl (7-17); Calcium 10.0 mg/dl (8.4-10.2); Carbon Dioxide 25 mmol/L (22-30); Chloride 105 mmol/L (98-107); Estimated Creatinine Clearance 62 ml/min; Glucose 104 mg/dl (70-99); Potassium 4.8 mmol/L (3.5-5.1); Sodium 138 mmol/L (135-145); eGFR 50.86
--- NOTE | 2025-04-24 11:36 | W.PN.HOSP.TC ---
Today's Communication/Plan
-
Eliquis. Wean oxygen
Assessment / Plan
Assessment / Plan
Physical exam:
General: Acutely ill
HEENT: Normocephalic, Atraumatic and Moist Mucous Membranes
Respiratory: Clear to Auscultation; Negative Wheezes, Rales or Rhonchi
Cardiac: Regular Rhythm and S1/S2
GI: Soft, Nontender and Nondistended
Musculoskeletal: No Clubbing, No Cyanosis and No Edema
Neuro: Awake, Alert and Oriented, no neurological deficit
Psych: Calm
A/P:
Acute hypoxic respiratory failure:
Due to PE
Continue supplemental oxygen
Discussed with family at bedside yesterday
Increase activity as tolerated
Try to wean oxygen today and check for home oxygen need
Acute submassive PE and right lower extremity DVT:
Status post catheter directed thrombolytics
Change heparin drip to Eliquis today
Increase activity as tolerated
Hypotension:
Resolved
Likely cardiogenic shock, POA due to PE
Off pressors now
Continue to monitor blood pressure and hemodynamics
FELIZ:
Creatinine 1.2 today
Creatinine peaked to 1.4 baseline around 0.9
Suspected VARINDER:
Needs sleep studies as outpatient
Chronic HFpEF:
Diuretics will restart today
KODY inhibitor and SGLT2 on hold to avoid hypotension and monitor renal function as well
Will restart upon discharge if needed
Hypothyroidism:
Continue thyroid replacement
Other medical problems:
Rheumatoid arthritis
Morbid obesity
Hypertension
Chronic kidney disease stage IIIa
DVT prophylaxis:
On treatment with heparin drip
CODE STATUS:
Full code
Total time spent on today's encounter was 36 minutes which included time spent in counseling the patient/family regarding diagnosis and treatment plan as listed above, goals of care, and symptom management. Case was discussed with nursing staff,
specialists, and care coordinators/case management. All labs and imaging personally reviewed by me. Remainder the time spent in detailed review of previous records, lab data, imaging, and other medical provider documentation.
Anticipated Discharge: Within 24 hours
Subjective/Interval History
-
Date of Service: April 24, 2025
Patient denies chest pain and still on supplemental oxygen. Does have some shortness of breath on exertion but overall better. Afebrile
Objective Data
-
Labs:
Laboratory Results
04/24/25 04/24/25 04/24/25
03:19 07:20 09:20
WBC 8.0
Hgb 13.7
Hct 42.9
Plt Count 254
APTT > 200 H*
Sodium Cancelled 138
Potassium Cancelled 4.8
Chloride Cancelled 105
Carbon Dioxide Cancelled 25
BUN Cancelled 27 H
Creatinine Cancelled 1.2 H
Glucose Cancelled 104 H
Calcium Cancelled 10.0
04/24/25
12:15
WBC
Hgb
Hct
Plt Count
APTT Pending
Sodium
Potassium
Chloride
Carbon Dioxide
BUN
Creatinine
Glucose
Calcium
Vital Signs:
Vital Signs
Temp Pulse Resp BP Pulse Ox
97.7 F 66 16 123/74 98
04/24/25 07:30 04/24/25 07:30 04/24/25 07:30 04/24/25 07:30 04/24/25 10:43
I&O
04/23/25 04/24/25 04/25/25
06:59 06:59 06:59
Intake Total 1806 / 1818 564 / 564
Output Total 900 / 900
Balance 906 / 918 564 / 564
--- NOTE | 2025-04-24 11:55 | VNURNOTE ---
Chart reviewed. [facility] liaison met with pt at bedside. Reviewed services: short term, intermittent, skilled. Reviewed homebound criteria. 02 eval completed- pt did not qualify for home 02. Pt stated she'd like to return to work as soon as
cleared by . She has sons who can assist at home if needed. No half-way needs identified. Advised pt that she can follow up with PCP and request services if felt needed after DC. Patient verbalized understanding and is in agreement with
plan. CLAYTON Florez updated. NO referral placed.
--- NOTE | 2025-04-24 12:24 | CM ---
Addendum entered by Kylah Shanks 04/24/25 18:41:
Eliqis 5mg BID for 30 days is $100, for 90 days mail order- $200
Original Note:
Pt does not qualify for home O2 or [facility].
Attempted to get Eliqis cost from [employer] but their computers are down. Will try again later today
Plan: Home, no needs
--- NOTE | 2025-04-24 18:01 | PTCARENOTE ---
O2 weaned off. patient on RA sats 94% at rest. no s/s of distress
[2025-04-24] MEDS: TRICOR 145 MG PO (20:35)
[2025-04-24] MEDS: XALATAN OPHTHALMIC SOLUTION 1 DROP BOTH EYES (20:35)
--- NOTE | 2025-04-25 02:24 | DOWNTIME ---
There was a [employer]ician Downtime on 04/25/2025 from 0100 to 04/25/2025 at 0215. Downtime documentation of patient's care, including medication administrations, has been reconciled in the electronic record per guidelines. Refer to the
patient's paper chart under the miscellaneous tab to see printed paper medication records and downtime forms.
[2025-04-25 03:13] VITALS: BP 135/77
[2025-04-25] MEDS: SYNTHROID 112 MCG PO (05:09)
[2025-04-25 06:00] VITALS: BMI 42.7
[2025-04-25 07:30] VITALS: BP 113/74
[2025-04-25 08:15] LABS: Hematocrit 45.2 % (37.0-47.0); Hemoglobin 14.3 g/dL (12.0-16.0); Mean Corp Hgb Conc. 31.6 g/dL (33.0-37.0); Mean Corpuscular Volume 93.6 fL (81.0-99.0); Platelet Count 303 10^3/uL (130-400); Red Cell Dist. Width 15.1 % (11.5-14.5)
--- NOTE | 2025-04-25 08:33 | W.PN.HOSP.TC ---
Today's Communication/Plan
-
Discharge planning today
Assessment / Plan
Assessment / Plan
Physical exam:
General: No acute distress
HEENT: Normocephalic, Atraumatic and Moist Mucous Membranes
Respiratory: Clear to Auscultation; Negative Wheezes, Rales or Rhonchi
Cardiac: Regular Rhythm and S1/S2
GI: Soft, Nontender and Nondistended
Musculoskeletal: No Clubbing, No Cyanosis and No Edema
Neuro: Awake, Alert and Oriented, no neurological deficit
Psych: Calm
A/P:
Acute hypoxic respiratory failure:
Due to PE
Continue supplemental oxygen
Discussed with family at bedside prior
Off oxygen
Plan to discharge today
Acute submassive PE and right lower extremity DVT:
Status post catheter directed thrombolytics
Change heparin drip to Eliquis since yesterday
Increase activity as tolerated
Hypotension:
Resolved
Likely cardiogenic shock, POA due to PE
Off pressors now
Continue to monitor blood pressure and hemodynamics
FELIZ:
Creatinine 1.1 today
Creatinine peaked to 1.4 baseline around 0.9
Suspected VARINDER:
Needs sleep studies as outpatient
Chronic HFpEF:
Diuretics will restart since yesterday
KODY inhibitor and SGLT2 on hold but can restart upon discharge
Hypothyroidism:
Continue thyroid replacement
Other medical problems:
Rheumatoid arthritis
Morbid obesity
Hypertension
Chronic kidney disease stage IIIa
DVT prophylaxis:
On treatment with heparin drip
CODE STATUS:
Full code
Anticipated Discharge: Today
Subjective/Interval History
-
Date of Service: April 25, 2025
Patient doing well today. No chest pain or shortness of breath. Off oxygen, on room air
Objective Data
-
Labs:
Laboratory Results
04/25/25
07:24
WBC 7.8
Hgb 14.3
Hct 45.2
Plt Count 303
Sodium Pending
Potassium Pending
Chloride Pending
Carbon Dioxide Pending
BUN Pending
Creatinine Pending
Glucose Pending
Calcium Pending
Vital Signs:
Vital Signs
Temp Pulse Resp BP Pulse Ox
98.2 F 75 17 135/77 93
04/25/25 03:13 04/25/25 03:13 04/25/25 03:13 04/25/25 03:13 04/25/25 03:13
I&O
04/24/25 04/25/25 04/26/25
06:59 06:59 06:59
Intake Total 564 / 564 240 / 240
Balance 564 / 564 240 / 240
[2025-04-25] MEDS: LASIX 40 MG PO (08:50)
[2025-04-25] MEDS: THERAGRAN 1 TABLET PO (08:50)
[2025-04-25] MEDS: ELIQUIS 10 MG PO (08:50)
[2025-04-25] MEDS: VITAMIN C 500 MG PO (08:50)
[2025-04-25] MEDS: NEURONTIN 300 MG PO (08:50)
[2025-04-25] MEDS: VITAMIN D3 (cholecalciferol) 75 MCG PO (08:51)
[2025-04-25] MEDS: FARXIGA 10 MG PO (08:51)
[2025-04-25 09:06] LABS: Blood Urea Nitrogen 28 mg/dl (7-17); Calcium 10.3 mg/dl (8.4-10.2); Carbon Dioxide 22 mmol/L (22-30); Chloride 105 mmol/L (98-107); Estimated Creatinine Clearance 67 ml/min; Glucose 107 mg/dl (70-99); Potassium 5.1 mmol/L (3.5-5.1); Sodium 137 mmol/L (135-145); eGFR 56.46
--- NOTE | 2025-04-25 11:24 | W.DCSUMMARY ---
Discharge Summary
Discharge Data
Date of Admission: 04/20/25
Date of Discharge: 04/25/25
Total time spent discharging patient (in min): 35
-
Pending Results: No
Hospital Course
Patient is 63 years old female history of hypertension, dyslipidemia, obesity, rheumatoid arthritis, CHF, presented to the hospital with shortness of breath and found to have submassive PE and acute DVT. Patient was treated with anticoagulation and
she was hemodynamically unstable so she required catheter directed thrombolytics. Patient also was seen by cardiology who does not feel she needed any cardiac intervention or procedures during this hospital stay. Patient did well rest of the
hospital stay and she was able to come off oxygen and also ambulate without any problems. She has been transition to oral anticoagulation. She will be discharged in relatively stable condition today.
Discharge duration: 35 minutes
Discharge Plan
-
Patient Disposition: Home (Routine Discharge)
Discharge Diagnosis/Procedures: Acute hypoxic respiratory failure. Acute submassive pulmonary embolism. Acute kidney injury. Hypotension. Suspicion for obstructive sleep apnea.
Diet: Low Cholesterol
Activity: As tolerated
Blood Work: Please PCP to order CBC, BMP within 1 week
Specialty Instructions: Weigh Daily- Call MD for wt gain/loss 3 lbs overnight/5 lbs in 1 week
Referrals:
Petra Rocha MD [Active, Pulmonary Medicine] - in four to six weeks
Mere Mejía CRNP [Family Provider, Internal Medicine] - in less than 1 week
Stacie Burrell CRNP [Specified Professional Personl, Cardiology] - 05/04/25 11:20 am
Prescriptions:
New
Eliquis DVT-PE Treat 30D Start 5 mg (74 tabs) tablets,dose pack
See Rx Instructions .ROUTE .COMPLEX Qty: 74 0RF
Rx Instructions:
orally per package directions
acetaminophen [Tylenol] 325 mg tablet
650 mg PO Q6H PRN (Reason: Pain) Qty: 14 0RF
Continued
fenofibrate 160 MG tablet
160 mg PO HS
multivitamin Tablet
1 tab PO DAILY
gabapentin 300 mg Capsule
300 mg PO BID
furosemide 20 mg Tablet
40 mg PO DAILY
dapagliflozin propanediol [Farxiga] 10 mg Tablet
10 mg PO DAILY
latanoprost 0.005 % drops
1 drp BOTH EYES HS
ascorbic acid (vitamin C) [Vitamin C] 500 mg Tablet
500 mg PO DAILY
lisinopril 40 mg Tablet
40 mg PO DAILY
levothyroxine [Synthroid] 112 mcg Tablet
112 mcg PO DAILY@0600
cholecalciferol (vitamin D3) [Vitamin D3] 25 mcg (1,000 unit) Tablet
75 mcg PO DAILY
Discontinued
celecoxib 200 MG capsule
200 mg PO BID
Rx Instructions:
Home med.
Take with food.
Do not take within 2 hours of Aspirin.
Discharge Orders:
Discharge Patient (As Directed); Ordered 04/25/25
Ordered By: Joseph Gunter
Discharge Date and Time
Discharge Date/Time: 04/25/25 14:15
Print Language: SWEDISH
[2025-04-25 11:30] VITALS: BP 140/71
--- NOTE | 2025-04-25 11:39 | W.PN.PUL3 ---
Today's Communication / Plan
-
No new complaints, stable on RA
Tolerating Eliquis
OP FU Recommended
Discharge planning per team
Assessment
-
64-year-old non-smoking female with a history of hypertension, rheumatoid arthritis on Simponi, hypothyroid, obesity as well as CHF preserved EF presented with shortness of breath for about a week and reported no sedentary existence or recent travel
found to have pulmonary emboli and pulmonary asked to consult on shortness of breath/pulmonary emboli 04/20/2025.
Acute hypoxic respiratory failure
Massive Pulmonary embolism s/p IR directed thrombolysis 04/22/25
Obstructive shock on pressors, briefly/resolved
RLE acute DVT
Pulmonary HTN
RV dysfunction
Conditions present prior to admission:
Rheumatoid arthritis on Simponi.
Hypertension.
Hypothyroid.
Morbid obesity-BMI 44. At risk of sleep disordered breathin
Chronic heart failure preserved EF.
Left upper extremity cellulitis/lymphangitis 02/2025.
Chronic kidney disease stage III.
Bladder sling. Left TKA.
Plan
PE-- Suspect unprovoked
Currently on RA, weaned from 5L
Stable
IS efforts
MAP 62 after giving IVF bolus, initially on pressors, now off
RV strain on imaging, RV dilated and decreased function on ECHO
Transitioned to Eliquis this AM, tolerating
Recommend case management consult to assess the affordability of Eliquis
Obstructive sleep apnea suspected- snores, has significant wakefulness after sleep onset, feels un-refreshed in the morning with daytime somnolence
Eventual sleep study is recommended-will be arranged in the outpatient setting
DVT prophylaxis-on full anticoagulation
Early nutrition
Early mobilization
Outpatient pulmonary/sleep disorders [id number] PFTs, repeat CT chest, lower extremity ultrasound and sleep study
Outpatient appropriate malignancy screening including colonoscopy
Reviewed with Dr. Blackwell and IR service.
Discharge planning per team, we will arrange OP FU
Diagnostic Data:
Chest x-ray 03/27/2024-nonspecific mild bibasilar airspace disease, mild cardiomegaly
Chest x-ray 04/18/2025-NAD
CT chest 04/17/2024-minimal nodular opacifications left greater than right lung bases
CT chest 04/20/2025-pulmonary emboli with right distal main pulmonary artery extending into segmental and subsegmental right pulmonary arteries, right heart strain EF 55-60%, stage II diastolic dysfunction, no significant valvular abnormalities
Echocardiogram 03/27/2024-EF 55-60%, stage II diastolic dysfunction, no significant valvular disease
ECHO 04/2025: 1. Contrast was used.
2. Normal left ventricular size, and systolic function. Estimated LVEF 55-60%.
3. The right ventricular cavity size is moderately dilated. The right ventricular systolic function is severely decreased.
4. Mild tricuspid regurgitation. Estimated pulmonary artery pressure of 33 mmHg assuming a right atrial pressure of 3 mmHg. Normal PASP.
5. Compared to 03/27/24: right ventricle is now dilated with decreased function.
Total time spent on this consultation/encounter __35__ minutes which includes review of history, physical exam, medications, laboratory data, personal review of imaging, extensive review of outpatient records, discussion with care team and
respiratory therapy.
Subjective Data
-
Date of Service:
Date of Service: April 25, 2025
Chief Complaint: Pulmonary Follow Up
Subjective:
Doing well no complaints
Stable on RA
Ready to go home
Objective Data
Data Reviewed
Vital Signs / I&O / Oxygen:
Vital Signs
Temp Pulse Resp BP Pulse Ox
98.1 F 71 16 113/74 92
04/25/25 07:30 04/25/25 08:50 04/25/25 07:30 04/25/25 08:50 04/25/25 10:13
Intake and Output
04/24/25 04/25/25 04/26/25
06:59 06:59 06:59
Intake Total 564 / 564 240 / 240
Balance 564 / 564 240 / 240
SaO2 92
Nasal Cannula flow liters per 2
minute
Physical Exam
General: Comfortable, Good Appetite and Other (NAD)
HEENT: Normocephalic, Sinus Tenderness and Moist Mucous Membranes
Cardiovascular: S1-S2 and Regular Rhythm
Respiratory: Clear and Non-Labored Respirations
GI: Soft, Non Distended and Non Tender
Neurology: Awake, Alert, Oriented and No Motor Deficits
Skin: Warm, Dry and Good Color
Labs/Micro/Reports
Lab Data
04/25/25 07:24
04/25/25 07:24
Laboratory Results
04/24/25
12:15
APTT Cancelled
--- NOTE | 2025-04-25 11:56 | CM ---
Pt discharge home with no needs. [employer] coupon given to pt. Will travel home with son
== END 2025-04-25 14:15 | disposition home or self-care (01) | DRG 291 ==
LOC: 4 EAST ACU 12:54
PROVIDERS: Internal Medicine; Nurse Practitioner Family; Nurse Practitioner Gerontology; Radiology Diagnostic Radiology; Registered Nurse; ADMITTING PHYSICIAN Hospitalist; ATTENDING PHYSICIAN Hospitalist; CONSULT PHYSICIAN Internal Medicine Critical Care Medicine; EMERGENCY PHYSICIAN Student in an Organized Health Care Education/Training Program; FAMILY PHYSICIAN Nurse Practitioner Adult Health; OTHER PHYSICIAN Internal Medicine
PROC: 3E06317 Introduction of Other Thrombolytic into Central Artery, Percutaneous Approach (ICD-10-PCS; 2025-04-22)
PROC: B51 Imaging, Veins, Fluoroscopy (ICD-10-PCS; 2025-04-22)
DX: I13.0 Hypertensive heart and chronic kidney disease with heart failure and stage 1 through stage 4 chronic kidney disease, or unspecified chronic kidney disease (principal); I26.93 Single subsegmental thrombotic pulmonary embolism without acute cor pulmonale; J96.01 Acute respiratory failure with hypoxia; N17.9 Acute kidney failure, unspecified; I50.32 Chronic diastolic (congestive) heart failure; Z68.41 Body mass index [BMI] 40.0-44.9, adult; I24.89 Other forms of acute ischemic heart disease; I5A Non-ischemic myocardial injury (non-traumatic); G47.33 Obstructive sleep apnea (adult) (pediatric); N18.30 Chronic kidney disease, stage 3 unspecified; E78.00 Pure hypercholesterolemia, unspecified; E66.01 Morbid (severe) obesity due to excess calories; M06.9 Rheumatoid arthritis, unspecified; Z79.890 Hormone replacement therapy; Z79.84 Long term (current) use of oral hypoglycemic drugs; E03.9 Hypothyroidism, unspecified; Z88.0 Allergy status to penicillin; E11.22 Type 2 diabetes mellitus with diabetic chronic kidney disease; E55.9 Vitamin D deficiency, unspecified; F41.9 Anxiety disorder, unspecified; K76.0 Fatty (change of) liver, not elsewhere classified; Z79.899 Other long term (current) drug therapy; Z82.49 Family history of ischemic heart disease and other diseases of the circulatory system; Z88.5 Allergy status to narcotic agent; Z96.652 Presence of left artificial knee joint
CPT/HCPCS: 36014; 36620; 37211; 37214; 71275; 75741; 76937; 80048; 80053; 83880; 84484; 85025; 85027; 85384; 85610; 85730; 86803; 93005; 93306; 93970; 96365; 96366; 97110; 97116; 97163; 99291; C1769; C1887; J2997; Q9950; Q9967

== ENCOUNTER → 2025-07-01 12:00 | Outpatient (REF) | payer OTHER, SELFPAY | LOC: DHSLP 12:00 | PROVIDERS: ATTENDING PHYSICIAN Internal Medicine; FAMILY PHYSICIAN Nurse Practitioner Adult Health | DX: G47.33 Obstructive sleep apnea (adult) (pediatric) (principal); R09.02 Hypoxemia | CPT/HCPCS: 95800 ==